=== PATIENT | female | born 1935 | race Caucasian/White ===

== ENCOUNTER 2017-06-23 08:45 | Inpatient (IN) | payer OTHER, MEDICARE ==
[~2017-06-23] VITALS: Ht 160 cm; Wt 76.3 kg
--- NOTE | 2017-06-23 09:45 | RADIOLOGY REPORT ---
EXAMINATION: XR CHEST CLINICAL INFORMATION: Chest pain. COMPARISON: 05/07/2017 TECHNIQUE: 2 views of the chest were obtained. FINDINGS: The lungs are well expanded. Mild elevation of the right hemidiaphragm. No consolidation, edema, or effusion. No pneumothorax. The cardiomediastinal silhouette is within normal limits. No acute osseous abnormality. Radiopaque anchor in the right humeral head. IMPRESSION: No acute pulmonary findings.
[2017-06-23 12:19] LABS: ABSOLUTE BASOPHIL COUNT 0 /CUMM (0.0-0.2); ABSOLUTE EOSINOPHIL COUNT 0 /CUMM (0.0-0.7); ABSOLUTE GRANULOCYTE CT 7.5 /CUMM (1.4-6.5); ABSOLUTE LYMPH COUNT 1.8 /CUMM (1.2-3.4); ABSOLUTE MONOCYTE COUNT 0.8 /CUMM (0.10-0.60); BASOPHIL % 0.4 % (0.0-2.0); EOSINOPHIL % 0.2 % (0-5); GRANULOCYTE % 74.2 % (42.2-75.2); HEMATOCRIT 39.9 % (37-47); MEAN CORPUSCULAR HGB 32.3 PG (27.0-31.0); MEAN CORPUSCULAR HGB CONC 33.9 G/DL (33.0-37.0); MEAN CORPUSCULAR VOLUME 95.4 FL (81.0-99.0); MEAN PLATELET VOLUME 7.4 FL (7.4-10.4); PLATELET COUNT 359 /CUMM (130-400); RBC DISTRIBUTION WIDTH 13.1 % (11.5-14.5); RED BLOOD CELL CT 4.18 /CUMM (4.20-5.40); WHITE BLOOD CELL COUNT 10.1 /CUMM (4.8-10.8)
--- NOTE | 2017-06-23 12:30 | ED CARDIAC/CP/PALPITATIONS ---
History of Present Illness General Chief Complaint: Chest Pain Stated Complaint: SOB/CP Source: patient Exam Limitations: no limitations Vital Signs & Intake/Output Vital Signs & Intake/Output Vital Signs Date Time Temp Pulse Resp B/P B/P Pulse O2 O2 Flow FiO2 Mean Ox Delivery Rate 06/23 1649 97.0 84 20 118/70 95 06/23 1550 99.4 88 16 122/58 98 Room Air 06/23 1439 100.0 96 20 141/63 96 06/23 1216 Room Air 06/23 0855 98.1 87 18 134/80 96 Room Air Allergies Coded Allergies: meperidine (From DEMEROL) (LIGHTHEADED 06/23/17) Triage Note: PT STATES THAT SHE HAS GRADUALLY BEEN GETTING EXERTIONAL SOB OVER THE PAST MONTH, HAD OUT PT PULMONARY TEST HERE, LAST PM SHE WAS WOKEN OUT OF SLEEP WITH L SIDE SHARP CHEST PAIN NON RADIATING AND DIFFICULTY CATCHING HER BREATH. O2 SAT 96 % ON RA. NSR ON EKG, PT NOTED TO BE VERY ANXIOUS. PAIN NOTED TO INCREASE WHEN PT WAS TRYING TO SIT UP FROM LYING POSITION AFTER EKG Triage Nurses Notes Reviewed? yes Onset: Abrupt Duration: day(s): (2), intermittent Timing: recent history Quality/Severity: moderate, severe Location: central Radiation: no radiation Activities at Onset: none HPI: 81-year-old female comes into the emergency room with complaints of chest pain has been going on for the past 2 days. Pain is sharp. Intermittent. Left side. Comes and goes every 15 minutes or so. Some associated shortness of breath. Denies any fever chills vomiting diaphoresis. History of hypertension and hyperlipidemia. She saw her primary care doctor last month and was diagnosed with pneumonia and prescribed antibiotics. She has not felt better since then and pain became more increased over the last couple days. (Lauri Pritchett) Past History Travel History Traveled to [place] past 21 day No Medical History Any Pertinent Medical History? see below for history Neurological: NONE EENT: NONE Cardiovascular: hypertension, hyperlipidemia Respiratory: pneumonia Gastrointestinal: GERD Hepatic: NONE Renal: NONE Musculoskeletal: NONE Psychiatric: NONE Endocrine: NONE Blood Disorders: NONE Cancer(s): NONE Surgical History Surgical History: appendectomy, hip replacement, ROTATOR CUFF Psychosocial History What is your primary language British Tobacco Use: Never used ETOH Use: denies use Illicit Drug Use: denies illicit drug use Family History Hx Contributory? No (Lauri Pritchett) Review of Systems Review of Systems Constitutional: Reports: no symptoms. EENTM: Reports: no symptoms. Respiratory: Reports: see HPI. Cardiovascular: Reports: see HPI. GI: Reports: no symptoms. Genitourinary: Reports: no symptoms. Musculoskeletal: Reports: no symptoms. Skin: Reports: no symptoms. Neurological/Psychological: Reports: no symptoms. Hematologic/Endocrine: Reports: no symptoms. Immunologic/Allergic: Reports: no symptoms. All Other Systems: Reviewed and Negative (Lauri Pritchett) Physical Exam Physical Exam General Appearance: well developed/nourished, alert, awake Head: atraumatic, normal appearance Eyes: Bilateral: normal appearance, EOMI. Ears, Nose, Throat: normal ENT inspection, hearing grossly normal Neck: normal inspection Respiratory: normal breath sounds, no respiratory distress Cardiovascular: regular rate/rhythm Gastrointestinal: soft Back: normal inspection Extremities: normal inspection Neurologic/Psych: awake, alert, oriented x 3, normal gait Skin: intact, normal color Core Measures ACS in differential dx? No CVA/TIA Diagnosis No Sepsis Present: No Sepsis Focused Exam Completed? No (Lauri Pritchett) Progress Differential Diagnosis: AMI, aortic dissection, cholecystitis, musculoskeletal pain, myocarditis, pancreatitis, pericarditis, pneumonia, pneumothorax, pulmonary embolism, respiratory failure, sepsis, unstable angina, V-fib/V-Tach, WPW syndrome Plan of Care: Orders Procedure Date/time Status Heart Healthy Diet 06/23 D Active BLOOD CULTURE 06/23 1617 Active TROPONIN LEVEL 06/23 1515 Complete EKG 06/23 1515 Active Patient Data 06/23 1457 Active RAPID VIRAL INFLUENZA A 06/23 1448 Complete ED Holding Orders 06/23 1442 Active Admit to inpatient 06/23 1442 Active Vital Signs 06/23 1442 Active Code Status 06/23 1442 Active Telemetry/Manager Qa 06/23 1216 Active Add-on Test (ER Only) 06/23 1215 Active D-DIMER 06/23 1215 Complete TROPONIN LEVEL 06/23 0911 Complete COMPREHENSIVE METABOLIC PANEL 06/23 0911 Complete CBC WITHOUT DIFFERENTIAL 06/23 0911 Complete EKG 06/23 0846 Active Telemetry/Manager Qa 06/23 UNK Active Laboratory Tests 06/23/17 1515: Troponin I < 0.01 06/23/17 1215: D-Dimer High Sensitivty 359 H 06/23/17 1213: Anion Gap 13, Estimated GFR > 60, BUN/Creatinine Ratio 20.0, Glucose 122 H, Calcium 9.8, Total Bilirubin 1.2, AST 20, ALT 22, Alkaline Phosphatase 87, Troponin I < 0.01, Total Protein 7.1, Albumin 4.2, Globulin 2.9, Albumin/ Globulin Ratio 1.4, CBC w Diff NO MAN DIFF REQ, RBC 4.18 L, MCV 95.4, MCH 32.3 H, MCHC 33.9, RDW 13.1, MPV 7.4, Gran % 74.2, Lymphocytes % 17.3 L, Monocytes % 7.9, Eosinophils % 0.2, Basophils % 0.4, Absolute Granulocytes 7.5 H, Absolute Lymphocytes 1.8, Absolute Monocytes 0.8 H, Absolute Eosinophils 0, Absolute Basophils 0 Microbiology 06/23 1617 BLOOD: Blood Culture - ORD 06/23 1500 NASOPHARYN: Influenza Virus A & B Rapid Smear - COMP Diagnostic Imaging: Viewed by Me: Radiology Read. Discussed w/RAD: Radiology Read. Radiology Impression: PATIENT: ESTEFANÍA WILLINGHAM PRESENT AGE: 81 PATIENT ACCOUNT NO: [id number] : 35 LOCATION: [facility] ORDERING PHYSICIAN: Marcy CARMONA SERVICE DATE: 06/23/17 EXAM TYPE: RAD - XRY-CHEST XRAY, TWO VIEWS EXAMINATION: XR CHEST CLINICAL INFORMATION : Chest pain. COMPARISON: 05/07/2017 TECHNIQUE: 2 views of the chest were obtained. FINDINGS: The lungs are well expanded. Mild elevation of the right hemidiaphragm. No consolidation, edema, or effusion. No pneumothorax. The cardiomediastinal silhouette is within normal limits. No acute osseous abnormality. Radiopaque anchor in the right humeral head. IMPRESSION: No acute pulmonary findings. DICTATED BY: Jimmy Horton MD DATE/TIME DICTATED:940 APPLICATION INTEGRATOR:POOL DATE/TIME TRANSCRIBED:06/23/17940 CONFIDENTIAL, DO NOT COPY WITHOUT APPROPRIATE AUTHORIZATION. <Electronically signed in Other Vendor System> SIGNED BY: Jimmy Horton MD 06/23/1745 Initial ED EKG: normal sinus rhythm, rate (85), BORDERLINE T WAVE ABNORMALITIES Comments: 06/23/2017 3:30:[address] Fitzpatrick was consult. He will see the patient upstairs. She apparently has been in and out of A. fib on the Holter monitor that was performed. At this time we will hold on anticoagulation because she is in sinus rhythm. (Lauri Pritchett) Departure Departure Disposition: STILL A PATIENT Condition: Stable Clinical Impression Primary Impression: Unstable angina Secondary Impressions: Paroxysmal A-fib Referrals: Susi Saravia MD (PCP/Family) Departure Forms: Customer Survey General Discharge Information Admission Note Documentation of Exam: Documentation of any treatments & extenuating circumstances including Concerns Regarding Discharge (functional status, medication knowledge or non-compliance, living conditions, etc.) that warrant an admission rather than observation: Patient will require cardiac consultation. Serial troponins. Serial EKGs. Echocardiogram. High risk. Patient is in and out of A. fib. Patient may require IV heparin and anticoagulation. Medically not safe for discharge. Consider stress test due to the intermittent chest pain she is having which is concerning for unstable angina pain. (Lauri Pritchett) Admission Note Spoke With: Fabián MORAN,Mayela Beatty PA/LEARNING AND DEVELOPMENT ASSOCIATE Co-Sign Statement Statement: ED Attending supervision documentation- [X] I saw and evaluated the patient. I have also reviewed all the pertinent lab results and diagnostic results. I agree with the findings and the plan of care as documented in the PA's/LEARNING AND DEVELOPMENT ASSOCIATE's documentation. [X] I have reviewed the ED Record and agree with the PA's/LEARNING AND DEVELOPMENT ASSOCIATE's documentation. [] Additions or exceptions (if any) to the PAs/LEARNING AND DEVELOPMENT ASSOCIATE's note and plan are summarized below: [PT TO BE ADMITED FOR ACS, CP AND SOB, CARDIOLOGY CONSULTATION, SERIAL ENZYMES] (Elvis MORAN,Neftaly William) Critical Care Note Critical Care Note Critical Care Time: non-applicable (Lauri Pritchett)
--- NOTE | 2017-06-23 13:58 | CT SCAN REPORT ---
EXAMINATION: CT ANGIOGRAM OF THE CHEST WITH AND WITHOUT CONTRAST (CT PULMONARY ANGIOGRAM FOR PE) CLINICAL INFORMATION: Chest pain. COMPARISON: Radiograph from today. TECHNIQUE: Prior to contrast administration, noncontrast localization images were obtained. Subsequently, multidetector volumetric imaging was performed from the thoracic inlet to below the diaphragms following the administration of 65 mL Optiray 320 intravenous contrast. No contrast reaction reported. Sagittal, coronal, and MIP oblique sagittal reformatted images were obtained on the CT workstation, uploaded to PACS, and reviewed. Total exam dose-length product 409 mGy-cm. FINDINGS: QUALITY OF STUDY/CONTRAST BOLUS: Satisfactory PULMONARY ARTERIES: No central or segmental pulmonary emboli. THORACIC AORTA: No aneurysm or dissection. LUNG: The central airways are patent. Minimal dependent atelectasis bilaterally. No dense consolidation. No suspicious pulmonary nodules. PLEURA: No pleural effusion or pneumothorax. MEDIASTINUM: Normal heart size. There is a trace pericardial effusion. No mediastinal lymphadenopathy. The thyroid gland is unremarkable. No evidence of septal bowing or right heart strain. CHEST WALL/AXILLA: No axillary or internal mammary lymphadenopathy. There is a soft tissue nodule in the upper inner quadrant of the right breast which measures 1.2 x 0.9 cm. OSSEOUS STRUCTURES: No acute or suspicious osseous abnormality. Mild degenerative changes of the spine. UPPER ABDOMEN: Small hiatal hernia noted. No reflux of contrast into the hepatic veins to suggest elevated right heart pressures. IMPRESSION: 1. No pulmonary embolism. 2. Trace pericardial effusion. 3. No acute pulmonary findings. 4. Soft tissue nodule in the upper quadrant of the right breast. This should be correlated with mammography. VTE: negative
--- NOTE | 2017-06-23 14:57 | History & Physical ---
Rubia Barajas 06/23/17 1457: General Information and HPI MD Statement: I have seen and personally examined ESTEFANÍA WILLINGHAM and documented this H& P. The patient is a 81 year old F who presented with a patient stated chief complaint of []. Source of Information: patient Exam Limitations: no limitations History of Present Illness: Ms. Willingham is a 81yo F w/ PMH of HTN, HLD, GERD, appedectomy, Hip replacement in 2013, and recently outpatient treated pneumonia w/ doxycycline in 04/2017, presented to ER with exertional SOB for a month and sudden onset of left sided non-radiating, sharp, and intermittent chest pain starting last night. Patient was brought to ER by her daughter. Patient stated that she did not feel much improved on breathing after the outpatient treatment of her pneumonia, and still felt SOB on exertions of any kind around house. Patient endorsed remote episode of chest pain 2-3 yrs ago, however no abnormality was found from cardiac workup including echocardiogram. Patient can ambulate independently at home with all ADLs and IADLs. Of note, patient was recently sent for holter monitoring by her PCP Dr. Saravia and was found to have paroxysmal A-fib after Dr. Fitzpatrick's readings. Patient denied fever/night sweat/weight change/mood change/insomnia, dietary/ appetite change. Patient denied cough/Abdominal pain, bowel movement/urinary abnormality, or other skin/musculoskeletal/neurological disorders. Allergies/Medications Allergies: Coded Allergies: meperidine (From DEMEROL) (LIGHTHEADED 06/23/17) Past History Travel History Traveled to [place] past 21 day No Medical History Neurological: NONE EENT: NONE Cardiovascular: hypertension, hyperlipidemia Respiratory: pneumonia Gastrointestinal: GERD Hepatic: NONE Renal: NONE Musculoskeletal: NONE Psychiatric: NONE Endocrine: NONE Blood Disorders: NONE Cancer(s): NONE Surgical History Surgical History: appendectomy, hip replacement, ROTATOR CUFF Past Family/Social History Psychosocial History Smoking Status: Former Smoker (Quitted 1988) ETOH Use: denies use Illicit Drug Use: denies illicit drug use Functional Ability ADLs Independent: dressing, eating, toileting, bathing. Ambulation: independent IADLs Independent: shopping, housework, finances, food prep, telephone, transportation , medication admin. Review of Systems Review of Systems Constitutional: Reports: see HPI. Exam & Diagnostic Data Last 24 Hrs of Vital Signs/I&O Vital Signs Date Time Temp Pulse Resp B/P B/P Pulse O2 O2 Flow FiO2 Mean Ox Delivery Rate 06/23 1649 97.0 84 20 118/70 95 06/23 1550 99.4 88 16 122/58 98 Room Air 06/23 1439 100.0 96 20 141/63 96 06/23 1216 Room Air 06/23 0855 98.1 87 18 134/80 96 Room Air Intake & Output 06/23 1600 06/23 0800 06/23 0000 Intake Total Output Total Balance Patient 77.111 kg Weight Physical Exam General Appearance Alert, Oriented X3, Cooperative, No Acute Distress Skin No Rashes, No Breakdown, No Significant Lesion Skin Temp/Moisture Exam: Warm/Dry HEENT Atraumatic, PERRLA Neck Supple, No JVD Cardiovascular Regular Rate, Normal S1, Normal S2 Lungs Clear to Auscultation, Normal Air Movement Abdomen Normal Bowel Sounds, Soft, No Tenderness Neurological Normal Speech, Strength at 5/5 X4 Ext Extremities No Edema, Normal Pulses, No Tenderness/Swelling Last 24 Hrs of Labs/Zeus: Laboratory Tests 06/23/17 1515: Troponin I < 0.01 06/23/17 1215: D-Dimer High Sensitivty 359 H 06/23/17 1213: Anion Gap 13, Estimated GFR > 60, BUN/Creatinine Ratio 20.0, Glucose 122 H, Hemoglobin A1c Pending, Calcium 9.8, Magnesium 1.9, Total Bilirubin 1.2, AST 20, ALT 22, Alkaline Phosphatase 87, Troponin I < 0.01, Total Protein 7.1, Albumin 4.2, Globulin 2.9, Albumin/Globulin Ratio 1.4, TSH 2.480, Free T4 1.55, Free T3 3.6, CBC w Diff NO MAN DIFF REQ, RBC 4.18 L, MCV 95.4, MCH 32.3 H, MCHC 33.9, RDW 13.1, MPV 7.4, Gran % 74.2, Lymphocytes % 17.3 L, Monocytes % 7.9, Eosinophils % 0.2, Basophils % 0.4, Absolute Granulocytes 7.5 H, Absolute Lymphocytes 1.8, Absolute Monocytes 0.8 H, Absolute Eosinophils 0, Absolute Basophils 0 Microbiology 06/23 1720 BLOOD: Blood Culture - RECD 06/23 1500 NASOPHARYN: Influenza Virus A & B Rapid Smear - COMP Assessment/Plan Assessment: Ms. 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 Patient endorsed remote episode of chest pain 2-3 yrs ago, however no abnormality was found from cardiac workup including echocardiogram. Of note,patient was recently sent for holter monitoring by her PCP Dr. Saravia and was found to have paroxysmal A-fib after Dr. Fitzpatrick's readings. Patient denied fever/night sweat/weight change/mood change/insomnia, dietary/ appetite change. Patient denied cough/Abdominal pain, bowel movement/urinary abnormality, or other skin/musculoskeletal/neurological disorders. On admission, Vitals: Tmax 100.0, Otherwise stable under room air, BP 141/63 -CBC: Unremarkable -BMP: Unremarkable -Misc: DDimer 359, Trop -ve x 1 -CXR: no acute process -CTA: negative for PE -EKG: Normal sinus rhythm with nonspecific ST-T abnormalities. -Interventions in ER: Tylenol, ASA 325mg Assessment: Ms. 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 Without significant lab/EKG/imaging abnormality to suggest any active cardiac or pulmonary event contributing to patient's SOB and sudden onset chest pain, it is likely that patient was suffering from unstable Angina pending rule out, and less likely, due to paroxysmal a-fib from recent findings. Problem list #Unstable Angina #Paroxysmal A-fib #PMH of HTN, HLD Plan - Admit to Telemetry - Serial troponin & EKG - Will start ASA 325mg daily - Pending cardiology consult - Blood culture sent for Tmax 100.0, despite patient's temp self resolved without signs of infection. DVT prophylaxis Heparin + ALPS Heart Healthy Diet DNR/DNI As Ranked By This Provider Problem List: 1. Unstable angina 2. Paroxysmal A-fib Core Measures/Misc (12/27) Acute Coronary Syndrome ACS Diagnosis: No Congestive Heart Failure Congestive Heart Failure Diagnosis No Cerebrovascular Accident CVA/TIA Diagnosis: No VTE (View Protocol) VTE Risk Factors Age>40 No Mechanical VTE Prophylaxis d/t N/A MechProphylax Ordered No VTE Pharm Prophylaxis d/t NA PharmProphylax ordered Sepsis (View protocol) Sepsis Present: No Yang Trevizo MD 06/23/171916: General Information and HPI Allergies/Medications Home Med list Metoprolol Succ XL (Toprol XL) 25 MG TAB 1 TAB PO DAILY ARRYTHMIA (Reported) Omeprazole 20 MG TABLET.DR 1 TAB PO DAILY aCIDITY (Reported) Pravastatin Sodium 40 MG TABLET 1 TAB PO DAILY HYPERLIPIDEMIA (Reported) Resident Review Statement Resident Statement: examined this patient, discussed with help desk internship, agreed with help desk internship Other Findings: Patient is an 81-year-old female the past medical history of hypertension, hyperlipidemia, osteoarthritis, hiatal hernia, GERD, history of colonic polyps status post polyp removal, diverticular disease, internal and external hemorrhoids, recently treated for pneumonia by doxycycline presented with chief complaints of gradually progressive onset of chest pain which got worse last night. According to the patient, she was recently treated for pneumonia in April with doxycycline. After which she started having shortness of breath especially on exertion. She thinks that she was having associated chest pain with breathing.Yesterday night, after she had dinner and going to bad for sleep she started having chest pain.It was located in the center of the chest and was increased by taking deep breathing and moving in the bed. She tries 2 tb of Tylenol without any benefit.In the morning her daughter convinced her to come to the hospital that is why she is here. She denies for any palpitation, fever, chills, nausea, vomiting, dizziness, blurry of vision,.At her baseline she lives with the family with the and does all his activities without any problem. Of note -she was recently evaluated for arrhythmia by her primary care physician Dr. Saravia, by 24 hour Holter monitoring which showed evidence of paroxysmal atrial fibrillation(according to Dr. Fitzpatrick's note). ED course -vital signs temperature 98.1, pulse 87, respiratory rate 18, blood pressure 140/80, SPO2 96% on room air. Blood workup showed RBC 4.18, hemoglobin 13.5, hematocrit 39.9, platelet count 359, sodium 138, potassium 4.0, chloride 102, anion gap 13, BUN 16, creatinine 0.8, glucose 122, calcium 9.8, total bilirubin 1.2, AST 20, ALT 22, alkaline phosphatase 87, troponin I less than 0.01, Albumin 4.2, d-dimer -359 Chest x-ray -no acute cardiopulmonary abnormality CTA -no evidence of PE, trace pericardial effusion, soft tissue nodule in right side of the breast. Assessment and plan - Patient is an 81-year-old female with history of multiple coronary artery disease risk factors including hypertension, hyperlipidemia presented with chief complaints of chest pain. Holter monitoring was showing evidence of paroxysmal atrial fibrillation. Her EKG does not show any acute ST-T wave changes, serial troponins twice were negative. It seems that he she has unstable angina or it was due to paroxysmal atrial fibrillation that she was getting chest pain.We will observe the patient to telemetry floor and do serial troponins and EKG.We will obtain cardiology consult and if needed echocardiogram tomorrow. Chest pain -possible unstable angina/ PAF - ([id number] Score -4, for Atrial Fibrillation Stroke Risk -4.8% per year) * Admit the patient to telemetry floor * Serial troponins and EKG * Pain medication according to the pain scale * Start patient on tablet aspirin 325 mg once a day * We will follow cardiology recommendation * We will consider Anticoagulation after discussing with cardio * We will consider Echo for Pericardial effusion - ? Physilogical or post Viral/ bacterial. Chronic medical conditions -hypertension, hyperlipidemia * We will continue on her metoprolol, pravastatin as before. NoCODE STATUS -DNR/DNI Diet -heart healthy diet DVT prophylaxis -SANGEETHA/heparin Imtiaz Klein MD 06/23/17 2228: Attending MD Review Statement Attending Statement Attending MD Statement: examined this patient, discuss w/resident/PA/PACKAGING MACHINE SUPPLIES DISTRIBUTOR, agreed w/resident/PA/PACKAGING MACHINE SUPPLIES DISTRIBUTOR, reviewed EMR data (avail), discussed with nursing, discussed with case mgmt, amended to note Attending Assessment/Plan: Patient seen and examined. 81-year-old female who presents to the emergency room with complaints of chest pain. Patient reports symptoms associated palpitations and occasional symptoms of breath. She was treated for pneumonia in April by her primary care provider in the outpatient setting. She recently had Holter monitor placed by her primary care provider due to the same complaints. According to her re etcher MONITOR REVEALED EPISODES OF PAROXYSMAL ATRIAL FIBRILLATION. ON ARRIVAL IN THE EMERGENCY ROOM TODAY PATIENT IS HEMODYNAMICALLY STABLE. SHE IS FOUND TO BE IN NORMAL SINUS RHYTHM. SHE DID HAVE AN ABNORMAL EKG ON PRESENTATION HOWEVER HER FIRST TROPONIN IS NEGATIVE. ON EXAMINATION SHE IS RESTING COMFORTABLY AND NOT IN ANY RESPIRATORY DISTRESS. HEART SOUNDS ARE REGULAR. LUNGS ARE CLEAR TO AUSCULTATION BILATERALLY. SHE HAS NO EVIDENCE OF VOLUME OVERLOAD. CT ANGIOGRAM DONE IN THE EMERGENCY ROOM SHOWED NO EVIDENCE OF PULMONARY EMBOLISM. HE DID HOWEVER SHOW NODULE WITHIN HER BREAST AND WAS SUGGESTIVE OF SMALL PERICARDIAL EFFUSION. Recommendations: -Admit to the inpatient medical service. Monitor patient on the telemetry unit. -Trend cardiac enzymes. Obtain echocardiogram. Repeat EKG in a.m. -Follow the cardiology service regarding need for further ischemic workup with a stress test given her abnormal EKG and complaints of chest pain. -Continue beta armin therapy for her blood pressure control and also paroxysmal atrial fibrillation. She does have an elevated transvascular score with increased recent stroke. We'll follow the cardiology service regarding recommendations for anticoagulant therapy. -Follow-up echocardiogram to determine degree of her pericardial effusion. -She'll need to follow-up with her primary care provider for a mammogram as an outpatient.
[2017-06-23 16:49] VITALS: BP 118/70
[2017-06-23] MEDS ORDERED: TOPROL XL25 M1 PO (17:05)
[2017-06-23] MEDS ORDERED: OMEPRAZOLE20 M3 PO (17:06)
[2017-06-23] MEDS ORDERED: PRAVASTATIN SOD40 M2 PO (17:06)
--- NOTE | 2017-06-23 19:02 | Cons- Cardiology ---
General Information and HPI Consulting Request Date of Consult: 06/23/17 Requested By: Imtiaz Klein MD Reason for Consult: Chest pain and shortness of breath. Source of Information: patient, old records Exam Limitations: no limitations History of Present Illness: Mrs. Laurita Preciado is an 81-year-old female with a history of osteoarthritis, hiatal hernia, gastroesophageal reflux disease, colonic polyps s /p polypectomy, diverticular disease, internal/external hemorrhoids, hypertension, dyslipidemia, pneumonia in April 2017 and a recent evaluation by her primary care physician (Los Saravia M.D.) and placement of a 24-hour Holter monitor that revealed sinus rhythm and atrial fibrillation with rapid ventricular response rates who presented from home with complaints of progressive shortness of breath on exertion over the past few months following the bout of pneumonia and an episode of severe ("10/10"), "sharp", chest discomfort that awakened her from sleep at ~4:00 a.m. today was worse with deep inspiration, but unchanged whether she was lying flat or seated. She denies any known history of coronary, valvular, dysrhythmic/conduction disease, or cardiomyopathy. Allergies/Medications Allergies: Coded Allergies: meperidine (From DEMEROL) (LIGHTHEADED 06/23/17) Home Med List: Metoprolol Succ XL (Toprol XL) 25 MG TAB 1 TAB PO DAILY ARRYTHMIA (Reported) Omeprazole 20 MG TABLET.DR 1 TAB PO DAILY aCIDITY (Reported) Pravastatin Sodium 40 MG TABLET 1 TAB PO DAILY HYPERLIPIDEMIA (Reported) Review of Systems Review of Systems: A 14 point system review was obtained was noncontributory, other than as above. Past History Travel History Traveled to [place] past 21 day No Medical History Blood Transfusion Hx: No Neurological: NONE EENT: NONE Cardiovascular: hypertension, hyperlipidemia Respiratory: pneumonia Gastrointestinal: GERD, hiatal hernia, diverticular disease, colonic polyps s/p polypectomy, internal/external hemorrhoids Hepatic: NONE Renal: NONE Musculoskeletal: osteoarthritis Psychiatric: NONE Endocrine: NONE Blood Disorders: NONE Cancer(s): NONE Surgical History Surgical History: appendectomy, hip replacement, ROTATOR CUFF Psychosocial History Where Do You Live? Home Services at Home: None Smoking Status: Never Smoked ETOH Use: denies use Illicit Drug Use: denies illicit drug use Exam & Diagnostic Data Vital Signs and I&O Vital Signs Date Time Temp Pulse Resp B/P B/P Pulse O2 O2 Flow FiO2 Mean Ox Delivery Rate 06/23 1649 97.0 84 20 118/70 95 06/23 1550 99.4 88 16 122/58 98 Room Air 06/23 1439 100.0 96 20 141/63 96 06/23 1216 Room Air 06/23 0855 98.1 87 18 134/80 96 Room Air Intake & Output 06/23 1600 06/23 0800 06/23 0000 06/22 1600 06/22 0800 06/22 0000 Intake Total Output Total Balance Patient 170 lb Weight Physical Exam: Well-developed, well-nourished elderly female in no acute distress with nasal oxygen in place. Vital signs: See above. HEENT: Normocephalic, atraumatic, EOMI, moist mucous membranes. Neck: No JVD, no bruits. Lungs: Few bibasilar crackles. Heart: S1, S2 with no murmur, gallop, or rub. PMI fifth ICS at MCL. Abdomen: Soft, nontender, positive bowel sounds. Extremities: No edema. Labs/Zeus Results: Laboratory Tests 06/23 06/23 06/23 1515 1215 1213 Chemistry Sodium (137 - 145 mmol/L) 138 Potassium (3.5 - 5.1 mmol/L) 4.0 Chloride (98 - 107 mmol/L) 102 Carbon Dioxide (22 - 30 mmol/L) 23 Anion Gap (5 - 16) 13 BUN (7 - 17 mg/dL) 16 Creatinine (0.5 - 1.0 mg/dL) 0.8 Estimated GFR (>60 ml/min) > 60 BUN/Creatinine Ratio (7 - 25 %) 20.0 Glucose (65 - 99 mg/dL) 122 H Calcium (8.4 - 10.2 mg/dL) 9.8 Total Bilirubin (0.2 - 1.3 mg/dL) 1.2 AST (14 - 36 U/L) 20 ALT (9 - 52 U/L) 22 Alkaline Phosphatase (<127 U/L) 87 Troponin I (< 0.11 ng/ml) < 0.01 < 0.01 Total Protein (6.3 - 8.2 g/dL) 7.1 Albumin (3.5 - 5.0 g/dL) 4.2 Globulin (1.9 - 4.2 gm/dL) 2.9 Albumin/Globulin Ratio (1.1 - 2.2 %) 1.4 TSH (0.270 - 4.200 uIU/mL) Pending Free T4 (0.85 - 1.93 ng/dL) Pending Free T3 (2.34 - 5.61 pg/mL) Pending Coagulation D-Dimer High Sensitivty (0 - 243 ng/ml) 359 H Hematology CBC w Diff NO MAN DIFF REQ WBC (4.8 - 10.8 /CUMM) 10.1 RBC (4.20 - 5.40 /CUMM) 4.18 L Hgb (12.0 - 16.0 G/DL) 13.5 Hct (37 - 47 %) 39.9 MCV (81.0 - 99.0 FL) 95.4 MCH (27.0 - 31.0 PG) 32.3 H MCHC (33.0 - 37.0 G/DL) 33.9 RDW (11.5 - 14.5 %) 13.1 Plt Count (130 - 400 /CUMM) 359 MPV (7.4 - 10.4 FL) 7.4 Gran % (42.2 - 75.2 %) 74.2 Lymphocytes % (20.5 - 51.1 %) 17.3 L Monocytes % (1.7 - 9.3 %) 7.9 Eosinophils % (0 - 5 %) 0.2 Basophils % (0.0 - 2.0 %) 0.4 Absolute Granulocytes (1.4 - 6.5 /CUMM) 7.5 H Absolute Lymphocytes (1.2 - 3.4 /CUMM) 1.8 Absolute Monocytes (0.10 - 0.60 /CUMM) 0.8 H Absolute Eosinophils (0.0 - 0.7 /CUMM) 0 Absolute Basophils (0.0 - 0.2 /CUMM) 0 Diagnostic Data EKG Results 06/23/2017: Sinus rhythm with an atrial premature contraction and first-degree AV block. No significant change when compared to earlier tracing today. CXR Results No acute cardiopulmonary findings. Other Results Chest CTA 06/23/2017: 1. No pulmonary embolism. 2. Trace pericardial effusion. 3. No acute pulmonary findings. 4. Soft tissue nodule in the upper quadrant of the right breast. This should be correlated with mammography. Assessment/Plan Assessment/Plan [id number] w/ hx HTN, HLD, recently discovered AF on 24-hour Holter monitoring who presents with complaints of severe chest pain that is worse with movement and progressive shortness of breath over the past month with a low-grade temperature, minor concave upward ST segment elevation, minor MA depression in some leads, and MA elevation in the reciprocal lead aVR on her 12-lead ECG, and a trace pericardial effusion on her chest CTA which could suggest pericardial inflammation, but who also now has the new issue of atrial fibrillation. Fortunately, she is in sinus rhythm now, but we have no way of knowing how long she was in the atrial fibrillation and need to consider anticoagulation given her elevated [id number] score of at least 4 (female=1 pt, HTN=1 pt, age >75=2 pts). This would give her a yearly unadjusted stroke rate of 4.8% without anticoagulation. Recommendations: * Admit to telemetry, serial troponins, follow-up ECG. * Echocardiogram to assess left ventricular systolic/diastolic function, degree of LVH given history of HTN, assess pericardial effusion, RV function, etc. * Check C-reactive protein and erythrocyte sedimentation rate. If no evidence of inflammation will proceed with anticoagulation. * Check magnesium, free T4, TSH, glycosylated hemoglobin A1c, etc. * Mammography to follow-up on breast nodule noted on chest CTA. * DVT prophylaxis. Further recommendations will follow, Thank you. Consult Acknowledgment - Thank you for your consult request.
[2017-06-23 22:59] VITALS: BP 126/74
[2017-06-24 06:51] VITALS: BP 120/80
--- NOTE | 2017-06-24 07:19 | PN- Housestaff ---
Rubia Barajas 06/24/17 0719: Subjective Follow-up For: #Chest pain likely 2/2 Pericarditis #Paroxysmal A-fib #PMH of HTN, HLD Tele-Events Since Last Visit: NSR 90s, no A-fib found Subjective: No overnight event. Patient complained of overnight chest pain similar to before admission, however resolved in the morning. Awared of CTA results of fluid within pericardium, and Echo today. Acknowledged of fever at Tmax 101 however not feeling chills/headache. No other specific complaint. Denied bowel/urinary abnormalities. Review of Systems Constitutional: Reports: see HPI. Objective Last 24 Hrs of Vital Signs/I&O Vital Signs Date Time Temp Pulse Resp B/P B/P Pulse O2 O2 Flow FiO2 Mean Ox Delivery Rate 06/24 0900 98.3 06/24 0900 98.3 92 24 138/70 95 Room Air 06/24 0800 Room Air 06/24 0706 101.0 06/24 0651 101.0 99 20 120/80 94 Room Air 06/23 2259 98.4 94 21 126/74 95 06/23 2110 93 06/23 1649 97.0 84 20 118/70 95 06/23 1550 99.4 88 16 122/58 98 Room Air 06/23 1439 100.0 96 20 141/63 96 06/23 1216 Room Air Intake & Output 06/24 1600 06/24 0800 06/24 0000 Intake Total 110 250 Output Total Balance 110 250 Intake, IV 10 Intake, Oral 100 250 Patient 78.471 kg 77.593 kg Weight Weight Bed scale Measurement Method Physical Exam General Appearance: Alert, Oriented X3, Cooperative, No Acute Distress Cardiovascular: Regular Rate Lungs: Clear to Auscultation, Normal Air Movement Abdomen: Soft, No Tenderness Neurological: Normal Speech Extremities: No Edema, Normal Pulses Current Medications: Current Medications Sig/Ramsey Start time Last Medication Dose Route Stop Time Status Admin Acetaminophen 650 MG Q6PRN PRN 06/24 0530 AC 06/24 PO 0706 Acetaminophen 0 .STK-MED ONE 06/23 1501 DC PO Acetaminophen 975 MG ONCE ONE 06/23 1500 DC 06/23 PO 06/23 1501 1459 Aspirin 325 MG DAILY 06/24 1000 AC 06/24 PO 0907 Aspirin 0 .STK-MED ONE 06/23 1256 DC PO Aspirin 325 MG ONCE ONE 06/23 1230 DC 06/23 PO 06/23 1231 1251 Atorvastatin Calcium 40 MG 1700 06/24 1700 AC PO Enoxaparin Sodium 40 MG DAILY 06/24 1000 AC 06/24 SC 0911 Enoxaparin Sodium 40 MG DAILY 06/24 0600 DC SC Heparin Sodium 5,000 UNIT Q8 06/23 2200 DC 06/23 (Porcine) SC 2111 Metoprolol Succinate 25 MG 2100 06/24 2100 AC PO Metoprolol Succinate 25 MG DAILY 06/23 1706 DC 06/23 PO 2110 Omeprazole 20 MG DAILY AC 06/24 0700 AC 06/24 PO 0517 Last 24 Hrs of Lab/[facility] Results Last 24 Hrs of Labs/Mics: Laboratory Tests 06/24/17 0610: Anion Gap 11, Estimated GFR > 60, BUN/Creatinine Ratio 22.9, C-Reactive Prot, Quant > 9.0 H, C-React Prot High Sens > 15.0 H, CBC w Diff NO MAN DIFF REQ, RBC 3.74 L, MCV 96.0, MCH 32.3 H, MCHC 33.6, RDW 13.4, MPV 7.9, Gran % 80.1 H , Lymphocytes % 10.8 L, Monocytes % 8.5, Eosinophils % 0.3, Basophils % 0.3, Absolute Granulocytes 8.0 H, Absolute Lymphocytes 1.1 L, Absolute Monocytes 0.8 H, Absolute Eosinophils 0, Absolute Basophils 0, ESR Westergren 60 H 06/23/17 2100: Troponin I < 0.01 06/23/17 1515: Troponin I < 0.01 06/23/17 1215: D-Dimer High Sensitivty 359 H 06/23/17 1213: Anion Gap 13, Estimated GFR > 60, BUN/Creatinine Ratio 20.0, Glucose 122 H, Hemoglobin A1c 5.7, Calcium 9.8, Magnesium 1.9, Total Bilirubin 1.2, AST 20, ALT 22, Alkaline Phosphatase 87, Troponin I < 0.01, Total Protein 7.1, Albumin 4.2, Globulin 2.9, Albumin/Globulin Ratio 1.4, TSH 2.480, Free T4 1.55, Free T3 3.6, CBC w Diff NO MAN DIFF REQ, RBC 4.18 L, MCV 95.4, MCH 32.3 H, MCHC 33.9, RDW 13.1, MPV 7.4, Gran % 74.2, Lymphocytes % 17.3 L, Monocytes % 7.9, Eosinophils % 0.2, Basophils % 0.4, Absolute Granulocytes 7.5 H, Absolute Lymphocytes 1.8, Absolute Monocytes 0.8 H, Absolute Eosinophils 0, Absolute Basophils 0 Microbiology 06/24 0945 BLOOD: Blood Culture - RECD 06/24 0945 BLOOD: Blood Culture - RECD 06/24 0856 URINE ROUT: Urine Culture - COLB 06/23 1720 BLOOD: Blood Culture - RECD 06/23 1500 NASOPHARYN: Influenza Virus A & B Rapid Smear - COMP Assessment/Plan Assessment: Ms. Preciado is a 81yo F w/ PMH of HTN, HLD, GERD, appedectomy, Hip replacement in 2013, and recently outpatient treated pneumonia w/ doxycycline in 04/2017, presented to ER with exertional SOB for a month and sudden onset of left sided non-radiating, sharp, and intermittent chest pain starting the night DIRECTOR CPG. Without significant lab/EKG/imaging abnormality to suggest any active cardiac or pulmonary event contributing to patient's SOB and sudden onset chest pain, it is likely that patient was suffering from unstable Angina pending rule out, and less likely, due to paroxysmal a-fib from recent findings. Problem list #Pericardial Effusion #L chest pain #Paroxysmal A-fib #PMH of HTN, HLD Plan - Serial troponin & EKG had been negative - Continue ASA 325mg daily - CRP +ve, ESR 60, No white count on lab - Blood culture x 2 sent for Tmax 101.0 overnight, and UA/urine Cx to follow up to rule out other source of infection. However, patient's temp likely related to her pericarditis. - Pending cardio follow up. - Pending Echo DVT prophylaxis Heparin + ALPS Heart Healthy Diet DNR/DNI Problem List: 1. Paroxysmal A-fib 2. Pericardial effusion 3. Chest pain Pain Ratin Pain Location: L Chest pain overnight. Pain Goal: Remain pain free Pain Plan: see AP Tomorrow's Labs & Rationales: RODRIGO Klein MD,Imtiaz 06/24/17 1411: Attending Review Statement Attending Statement Attending MD Statement: examined this patient, discuss w/resident/PA/DAM OPERATOR, agreed w/resident/PA/DAM OPERATOR, reviewed EMR data (avail), discussed with nursing, discussed with case mgmt, amended to note Attending Assessment/Plan: Patient seen and examined. Lying in bed not in any acute distress. No issues overnight. No events on telemetry monitoring. This morning she continues to complain of intermittent chest pain. Denies palpitations. She reports shortness of breath when she gets a chest pain. She reports that her chest pain is aggravated by position changes. She admits to chest pain with deep respiration. This morning she was febrile with a temperature of 101. Denies any cough. Denies any dysuria. Denies any diarrhea. She denies any rashes on the body. She is hemodynamically stable. On examination heart sounds are regular no audible murmur. Lungs are clear to auscultation bilaterally. Abdomen soft and nontender. She has no peripheral edema. She has no leukocytosis on labs. Her ESR is elevated at 60 and her C-reactive protein is very elevated however significant of this is unknown given her current fever. She may have an underlying infectious process going on. Problems: 1. Fever; query etiology. 2. Chest pain. 3. History of paroxysmal atrial fibrillation diagnosed on Holter monitoring. 3. Pericardial effusion. Plan: -Chest pain may be related to pericarditis. This may be viral and causing her fever. -Follow-up echocardiogram to determine the size of a pericardial effusion. -Obtain blood and urine cultures. -Continue metoprolol for rate control. Patient currently remains in sinus rhythm. In view of possibility of pericarditis would recommend holding off anticoagulation therapy for now. Follow-up with the cardiology service. -Mobilize patient as tolerated. -Outpatient mammogram for follow-up of Breast nodule noted on CT scan.
[2017-06-24 08:17] LABS: ABSOLUTE BASOPHIL COUNT 0 /CUMM (0.0-0.2); ABSOLUTE EOSINOPHIL COUNT 0 /CUMM (0.0-0.7); ABSOLUTE LYMPH COUNT 1.1 /CUMM (1.2-3.4); ABSOLUTE MONOCYTE COUNT 0.8 /CUMM (0.10-0.60); BASOPHIL % 0.3 % (0.0-2.0); EOSINOPHIL % 0.3 % (0-5); GRANULOCYTE % 80.1 % (42.2-75.2); HEMATOCRIT 35.9 % (37-47); MEAN CORPUSCULAR HGB 32.3 PG (27.0-31.0); MEAN CORPUSCULAR HGB CONC 33.6 G/DL (33.0-37.0); MEAN PLATELET VOLUME 7.9 FL (7.4-10.4); PLATELET COUNT 323 /CUMM (130-400); RBC DISTRIBUTION WIDTH 13.4 % (11.5-14.5); RED BLOOD CELL CT 3.74 /CUMM (4.20-5.40); WHITE BLOOD CELL COUNT 9.9 /CUMM (4.8-10.8)
[2017-06-24 09:00] VITALS: BP 138/70
--- NOTE | 2017-06-24 13:27 | Patient Discharge Instructions ---
Discharge Instructions General Discharge Information Special Instructions: - Please continue taking Eliquis at prescribed regimen and follow up with your bottling room worker for refill/dose adjustment. Please visit ER for any active bleeding from mouth/nose/rectum, and only stop Eliquis under physician's guidance. - Please follow up with your bottling room worker Dr. Fitzpatrick within 1-2 weeks of discharge. - Please follow up with outpatient mammogram for follow-up of Breast nodule noted on CT scan. - Please follow up with your primary care physician within 1-2 weeks of discharge. Inform your primary care physician of this admission to [facility]. - Continue your current medications per discharge instructions. - Please watch for these problems: Fever, Chills, Nausea, Vomiting, Shortness of Breath, Productive Cough, Chest Pain/Discomfort, Abdominal Pain, Active Bleeding or Bloody urine/stool. Diet Continue normal diet: Yes Recommended Diet: Heart Healthy Activity Full Activity/No Limits: Yes Acute Coronary Syndrome Inclusion Criteria At DC or during hospital stay patient has or had the following: ACS DIAGNOSIS No Discharge Core Measures Meds if any: Prescribed or Continued at Discharge Meds if any: NOT Prescribed or Continued at Discharge Congestive Heart Failure Inclusion Criteria At DC or during hospital stay patient has or had the following: CHF DIAGNOSIS No Discharge Core Measures Meds if any: Prescribed or Continued at Discharge Meds if any: NOT Prescribed or Continued at Discharge Cerebrovascular accident Inclusion Criteria At DC or during hospital stay patient has or had the following: CVA/TIA Diagnosis No Discharge Core Measures Meds if any: Prescribed or Continued at Discharge Meds if any: NOT Prescribed or Continued at Discharge Venous thromboembolism Inclusion Criteria VTE Diagnosis No VTE Type NONE VTE Confirmed by (Test) NONE Discharge Core Measures - Per Current guidelines, there needs to be overlap - treatment for the first 5 days of Warfarin therapy. - If discharged on Warfarin prior to 5 days of - overlap therapy, the patient will need to be - assessed for post discharge needs including - *Post discharge parental anticoagulation - *Warfarin and/or parental anticoagulation education - *Follow up date to check INR post discharge At least 5 days overlap therapy as Inpatient No Meds if any: Prescribed or Continued at Discharge Note: Overlap Therapy is Warfarin and Anticoagulant Meds if any: NOT Prescribed or Continued at Discharge
[2017-06-24 15:21] VITALS: BP 104/68
--- NOTE | 2017-06-24 15:52 | ECHOCARDIOGRAM REPORT ---
ESTEFANÍA WILLINGHAM Age: 81 : 1935 Gender: F Exam Date: 06/24/2017 10:11 Exam Location: 1 [address] Ht (in): 63 Wt (lb): 170 BSA: 1.88 BP: 120 / 80 Ordering Physician: Madonna Trevizo MD Referring Physician: Madonna Trevizo MD Technologist: Haroldo Torres [facility] Room Number: 171-1 Indications: Chest Pain Rhythm: Sinus Technical Quality: Fair FINDINGS Left Ventricle Normal size left ventricle. Mild concentric left ventricular hypertrophy. No obvious regional wall motion abnormalities. Left ventricular ejection fraction is estimated at borderline normal left ventricular ejection fraction estimated at 50-55%. Normal left ventricular diastolic filling pattern for age. Right Ventricle Normal right ventricular size and function. Right Atrium Normal right atrial size. Left Atrium Normal left atrial size. Mitral Valve Mildly calcified mitral valve annulus. Mitral valve mildly thickened. No mitral regurgitation. Aortic Valve Trileaflet aortic valve. Mild aortic sclerosis. No aortic valve stenosis or regurgitation. Tricuspid Valve Structurally normal tricuspid valve. Trace tricuspid regurgitation. Mild pulmonary hypertension. Right ventricular systolic pressure estimated to be elevated at 39 mmHg. Pulmonic Valve Pulmonic valve not well visualized. No pulmonic regurgitation. Pericardium No pericardial effusion. Great Vessels Normal size aortic root. Normal size inferior vena cava. CONCLUSIONS Normal size left ventricle. Mild concentric left ventricular hypertrophy. Left ventricular ejection fraction is estimated at borderline normal left ventricular ejection fraction estimated at 50-55%. Normal left ventricular diastolic filling pattern for age. Normal right ventricular size and function. Normal atrial size. Trace tricuspid regurgitation. Mild pulmonary hypertension. Ramone Fitzpatrick M.D. (Electronically Signed) Final Date: 24 June 2017 15:51 MEASUREMENTS (Male / Female) Normal Values 2D ECHO LV Diastolic Diameter PLAX 4.6 cm 4.2 - 5.9 / 3.9 - 5.3 cm LV Systolic Diameter PLAX 3.4 cm 2.1 - 4.0 cm LV Fractional Shortening PLAX 26.1 % 25 - 46 % LV Ejection Fraction 2D Teich 51.3 % IVS Diastolic Thickness 1.2 cm LVPW Diastolic Thickness 1.2 cm LV Relative Wall Thickness 0.5 RV Internal Dim ED PLAX 2.8 cm 1.9 - 3.8 cm LVOT Diameter 1.7 cm Aortic Root Diameter 2.6 cm LA Systolic Diameter LX 3.2 cm 3.0 - 4.0 / 2.7 - 3.8 cm Ascending Aorta Diameter 3.2 cm DOPPLER AV Peak Velocity 131.0 cm/s AV Peak Gradient 6.9 mmHg AV Mean Velocity 89.0 cm/s AV Mean Gradient 4.0 mmHg AV Velocity Time Integral 24.7 cm LVOT Peak Velocity 92.8 cm/s LVOT Peak Gradient 3.4 mmHg LVOT Mean Velocity 56.7 cm/s LVOT Mean Gradient 2.0 mmHg LVOT Velocity Time Integral 18.5 cm LVOT Stroke Volume 42.0 cm AV Area Cont Eq vti 1.7 cm AV Area Cont Eq pk 1.6 cm MV Peak Velocity 92.5 cm/s MV Peak Gradient 3.4 mmHg MV Mean Velocity 57.3 cm/s MV Mean Gradient 2.0 mmHg Mitral E Point Velocity 80.2 cm/s Mitral A Point Velocity 57.1 cm/s Mitral E to A Ratio 1.4 MV PHT Velocity 98.0 cm/s MV Deceleration [place] 506.0 cm/s MV Pressure Half Time 58.1 ms MV Area PHT 3.8 cm MV Deceleration Time 239.0 ms TR Peak Velocity 293.0 cm/s TR Peak Gradient 34.3 mmHg Right Atrial Pressure 5.0 mmHg Pulmonary Artery Systolic Pressu 39.3 mmHg Right Ventricular Systolic Press 39.3 mmHg PV Peak Velocity 112.0 cm/s PV Peak Gradient 5.0 mmHg PV Mean Velocity 74.9 cm/s PV Mean Gradient 3.0 mmHg PV Velocity Time Integral 21.3 cm LV E' Lateral Velocity 9.0 cm/s Mitral E to LV E' Lateral Ratio 8.9 LV E' Septal Velocity 8.1 cm/s Mitral E to LV E' Septal Ratio 9.9
--- NOTE | 2017-06-24 18:40 | PN- Cardiology ---
Subjective Subjective: Shortness of breath on exertion, chest discomfort when lying on her side, chest discomfort with inspiration, earlier fever, normal WBC count with left shift, elevated ESR, CRP, etc. Objective Vital Signs and I&Os Vital Signs Date Time Temp Pulse Resp B/P B/P Pulse O2 O2 Flow FiO2 Mean Ox Delivery Rate 06/24 1521 98.9 95 20 104/68 95 Room Air 06/24 0900 98.3 06/24 0900 98.3 92 24 138/70 95 Room Air 06/24 0800 Room Air 06/24 0706 101.0 06/24 0651 101.0 99 20 120/80 94 Room Air 06/23 2259 98.4 94 21 126/74 95 06/23 2110 93 Intake & Output 06/24 1600 06/24 0800 06/24 0000 06/23 1600 06/23 0800 06/23 0000 Intake Total 500 110 250 Output Total Balance 500 110 250 Intake, IV 20 10 Intake, Oral 480 100 250 Patient 173 lb 171 lb 170 lb Weight Weight Bed scale Measurement Method Physical Exam: Well-developed, well-nourished elderly female in no acute distress with nasal oxygen in place. Vital signs: See above. HEENT: Normocephalic, atraumatic, EOMI, moist mucous membranes. Neck: No JVD, no bruits. Lungs: Few bibasilar crackles. Heart: S1, S2 with no murmur, gallop, or rub. PMI fifth ICS at MCL. Abdomen: Soft, nontender, positive bowel sounds. Extremities: No edema. Current Medications: Current Medications Sig/Ramsey Start time Last Medication Dose Route Stop Time Status Admin Acetaminophen 650 MG Q6PRN PRN 06/24 0530 AC 06/24 PO 0706 Aspirin 325 MG DAILY 06/24 1000 AC 06/24 PO 0907 Atorvastatin Calcium 40 MG 1700 06/24 1700 AC 06/24 PO 1803 Enoxaparin Sodium 40 MG DAILY 06/24 1000 AC 06/24 SC 0911 Enoxaparin Sodium 40 MG DAILY 06/24 0600 DC SC Heparin Sodium 5,000 UNIT Q8 06/23 2200 DC 06/23 (Porcine) SC 2111 Metoprolol Succinate 25 MG 2100 06/24 2100 AC PO Metoprolol Succinate 25 MG DAILY 06/23 1706 DC 06/23 PO 211 Omeprazole 20 MG DAILY AC 06/24 0700 AC 06/24 PO 0517 Results Last 48 Hrs of Labs/Mics: Laboratory Tests 06/24/17 1550: Urine Color YEL, Urine Clarity CLEAR, Urine pH 6.0, Ur Specific [place] 1.010, Urine Protein TRACE H, Urine Ketones NEG, Urine Nitrite NEG, Urine Bilirubin NEG, Urine Urobilinogen 0.2, Ur Leukocyte Esterase NEG, Ur Microscopic SEDIMENT EXAMINED, Urine RBC RARE, Urine WBC 1-3 H, Ur Epithelial Cells RARE, Urine Bacteria FEW H, Urine Mucus RARE, Urine Hemoglobin SMALL H, Urine Glucose NEG 06/24/17 0610: Anion Gap 11, Estimated GFR > 60, BUN/Creatinine Ratio 22.9, C-Reactive Prot, Quant > 9.0 H, C-React Prot High Sens > 15.0 H, CBC w Diff NO MAN DIFF REQ, RBC 3.74 L, MCV 96.0, MCH 32.3 H, MCHC 33.6, RDW 13.4, MPV 7.9, Gran % 80.1 H , Lymphocytes % 10.8 L, Monocytes % 8.5, Eosinophils % 0.3, Basophils % 0.3, Absolute Granulocytes 8.0 H, Absolute Lymphocytes 1.1 L, Absolute Monocytes 0.8 H, Absolute Eosinophils 0, Absolute Basophils 0, ESR Westergren 60 H 06/23/17 2100: Troponin I < 0.01 06/23/17 1515: Troponin I < 0.01 06/23/17 1215: D-Dimer High Sensitivty 359 H 06/23/17 1213: Anion Gap 13, Estimated GFR > 60, BUN/Creatinine Ratio 20.0, Glucose 122 H, Hemoglobin A1c 5.7, Calcium 9.8, Magnesium 1.9, Total Bilirubin 1.2, AST 20, ALT 22, Alkaline Phosphatase 87, Troponin I < 0.01, Total Protein 7.1, Albumin 4.2, Globulin 2.9, Albumin/Globulin Ratio 1.4, TSH 2.480, Free T4 1.55, Free T3 3.6, CBC w Diff NO MAN DIFF REQ, RBC 4.18 L, MCV 95.4, MCH 32.3 H, MCHC 33.9, RDW 13.1, MPV 7.4, Gran % 74.2, Lymphocytes % 17.3 L, Monocytes % 7.9, Eosinophils % 0.2, Basophils % 0.4, Absolute Granulocytes 7.5 H, Absolute Lymphocytes 1.8, Absolute Monocytes 0.8 H, Absolute Eosinophils 0, Absolute Basophils 0 Microbiology 06/23 1500 NASOPHARYN: Influenza Virus A & B Rapid Smear - COMP Recent Imaging Studies: Echocardiogram 06/24/2017: Normal size left ventricle. Mild concentric left ventricular hypertrophy. Left ventricular ejection fraction is estimated at borderline normal left ventricular ejection fraction estimated at 50-55%. Normal left ventricular diastolic filling pattern for age. Normal right ventricular size and function. Normal atrial size. Trace tricuspid regurgitation. Mild pulmonary hypertension. Assessment/Plan Assessment/Plan [id number] w/ hx HTN, HLD, recently discovered AF on 24-hour Holter monitoring who presents with complaints of severe chest pain that is worse with movement and progressive shortness of breath over the past month with a low-grade temperature, minor concave upward ST segment elevation, minor WI depression in some leads, and WI elevation in the reciprocal lead aVR on her 12-lead ECG, and a trace pericardial effusion on her chest CTA which could suggest pericardial inflammation, but who also now has the new issue of atrial fibrillation. Fortunately, she is in sinus rhythm now, but we have no way of knowing how long she was in the atrial fibrillation and need to consider anticoagulation given her elevated [id number] score of at least 4 (female=1 pt, HTN=1 pt, age >75=2 pts). This would give her a yearly unadjusted stroke rate of 4.8% without anticoagulation. History, physical, laboratory data consistent with ongoing inflammation/ infection. Recommendations: * Repeat CXR or chest CT. * Repeat ECG. * Follow up cultures. * Consider ID input. * DVT prophylaxis. * Maintaining sinus rhythm, no urgency to begin anticoagulation. Continue telemetry? Yes
[2017-06-24 22:44] VITALS: BP 148/76
--- NOTE | 2017-06-24 22:51 | RADIOLOGY REPORT ---
EXAMINATION: XR PORTABLE CHEST CLINICAL INFORMATION: Shortness of breath COMPARISON: 06/23/2017 TECHNIQUE: Portable frontal view of the chest was obtained. FINDINGS: No focal consolidation, pulmonary edema, or pleural effusion. Stable cardiomediastinal silhouette. IMPRESSION: No acute cardiopulmonary findings.
[2017-06-25 06:47] VITALS: BP 126/80
--- NOTE | 2017-06-25 08:35 | PN- Housestaff ---
Rubia Barajas 06/25/17 0834: Subjective Follow-up For: #Chest pain likely 2/2 Pericarditis #Paroxysmal A-fib #PMH of HTN, HLD Tele-Events Since Last Visit: A-flutter/fib like episodes starting 2AM overnight and in a-fib rhythm, HR >120s Subjective: Overnight rhythmatic change as above, and patient still complained of SOB on exertion, however no overnight feeling of chills/fever. Eating drinking all well but low on appetite as being concerned about what was going on with her. No other specific complaint. Review of Systems Constitutional: Reports: see HPI. Objective Last 24 Hrs of Vital Signs/I&O Vital Signs Date Time Temp Pulse Resp B/P B/P Pulse O2 O2 Flow FiO2 Mean Ox Delivery Rate 06/25 0647 99.6 102 20 126/80 95 Room Air 06/24 2248 102 148/76 06/24 2244 99.9 102 20 148/76 94 06/24 1521 98.9 95 20 104/68 95 Room Air 06/24 0900 98.3 06/24 0900 98.3 92 24 138/70 95 Room Air Intake & Output 06/25 1600 06/25 0800 06/25 0000 Intake Total 120 300 Output Total Balance 120 300 Intake, IV 20 Intake, Oral 100 300 Patient 77.819 kg Weight Physical Exam General Appearance: Alert, Oriented X3, Cooperative, No Acute Distress Cardiovascular: Irregular tachy Lungs: Clear to Auscultation, Normal Air Movement Abdomen: Normal Bowel Sounds, Soft, No Tenderness Neurological: Normal Speech Extremities: No Edema, Normal Pulses Current Medications: Current Medications Sig/Ramsey Start time Last Medication Dose Route Stop Time Status Admin Acetaminophen 650 MG Q6PRN PRN 06/24 0530 AC 06/24 PO 0706 Aspirin 325 MG DAILY 06/24 1000 AC 06/24 PO 0907 Atorvastatin Calcium 40 MG 1700 06/24 1700 AC 06/24 PO 1803 Enoxaparin Sodium 40 MG DAILY 06/24 1000 AC 06/24 SC 0911 Metoprolol Succinate 25 MG 2100 06/24 2100 AC 06/24 PO 2248 Metoprolol Succinate 25 MG DAILY 06/23 1706 DC 06/23 PO 2110 Omeprazole 20 MG DAILY AC 06/24 0700 AC 06/25 PO 0603 Last 24 Hrs of Lab/Zeus Results Last 24 Hrs of Labs/Mics: Laboratory Tests 06/25/17 0610: CBC w Diff Pending, WBC Pending, RBC Pending, Hgb Pending, Hct Pending, MCV Pending, MCH Pending, MCHC Pending, RDW Pending, Plt Count Pending, MPV Pending 06/25/17 0408: Troponin I < 0.01 06/24/17 1550: Urine Color YEL, Urine Clarity CLEAR, Urine pH 6.0, Ur Specific [place] 1.010, Urine Protein TRACE H, Urine Ketones NEG, Urine Nitrite NEG, Urine Bilirubin NEG, Urine Urobilinogen 0.2, Ur Leukocyte Esterase NEG, Ur Microscopic SEDIMENT EXAMINED, Urine RBC RARE, Urine WBC 1-3 H, Ur Epithelial Cells RARE, Urine Bacteria FEW H, Urine Mucus RARE, Urine Hemoglobin SMALL H, Urine Glucose NEG Microbiology 06/24 1550 URINE ROUT: Urine Culture - RECD 06/24 944 BLOOD: Blood Culture - RECD 06/24 944 BLOOD: Blood Culture - RECD Assessment/Plan Assessment: Ms. Preciado is a 81yo F w/ PMH of HTN, HLD, GERD, appedectomy, Hip replacement in 2013, and recently outpatient treated pneumonia w/ doxycycline in 04/2017, presented to ER with exertional SOB for a month and sudden onset of left sided non-radiating, sharp, and intermittent chest pain starting the night [employer]. Without significant lab/EKG/imaging abnormality to suggest any active cardiac or pulmonary event contributing to patient's SOB and sudden onset chest pain, it is likely that patient was suffering from unstable Angina pending rule out, and less likely, due to paroxysmal a-fib from recent findings. Problem list #Pericardial Effusion #L chest pain #Paroxysmal A-fib #PMH of HTN, HLD Plan - Serial troponin & EKG had been negative - Continue ASA 325mg daily, however as patient is now in A-fib, she would need anticoagulation. Pending cardio's input. - UA negative for UTI and patient denied urinary symptoms. CXR clear of pneumonia, and no fever/white count signifying infection. - CRP +ve, ESR 60, No white count on lab, still aligning with picture of pericarditis. - Blood culture x 2 sent for Tmax 101.0 overnight 06/24. However, patient's temp likely related to her pericarditis. - Pending cardio follow up. - ECHO showed borderline EF 50-55%. DVT prophylaxis Heparin + ALPS Heart Healthy Diet DNR/DNI Problem List: 1. Chest pain 2. Pericardial effusion 3. Paroxysmal A-fib Pain Ratin Pain Location: NA Pain Goal: Remain pain free Pain Plan: see AP Tomorrow's Labs & Rationales: RODRIGO Klein MD,Imtiaz 06/25/17 1303: Attending MD Review Statement Attending Statement Attending MD Statement: examined this patient, discuss w/resident/PA/SENIOR DATA WAREHOUSE DEVELOPER, agreed w/resident/PA/SENIOR DATA WAREHOUSE DEVELOPER, reviewed EMR data (avail), discussed with nursing, discussed with case mgmt, amended to note Attending Assessment/Plan: Patient seen and examined. She went into atrial fibrillation overnight and has been with rapid ventricular response despite receiving her dose of Toprol XL 25 mg yesterday. She continues to complain of shortness of breath intermittently at night and during the day both at rest and with exertion. She complained of the symptoms during his hospitalization even with she was in normal sinus rhythm. Apparently she had pulmonary function test done as an outpatient prior to hospitalization on account of this complaint of shortness of breath. She has been seen by the pulmonology service. Her pulmonary function tests were within normal limits according to the certified corporate travel executive. Chest x-ray and CT imaging shows no evidence of any acute pathology. Patient's physical examination is benign.She is maintaining saturation at 96% on room air. It is unclear the etiology of her shortness of breath. Recommendations: -Echocardiogram shows no evidence of pericardial effusion. Begin patient on anticoagulation therapy with Eliquis Due to her elevated stroke risk. -Patient requires more optimal rate control. She is currently on extended release beta-armin therapy. Increase dose to 50 mg per recommendations of the cardiology service. -
[2017-06-25 08:41] LABS: ABSOLUTE BASOPHIL COUNT 0 /CUMM (0.0-0.2); ABSOLUTE EOSINOPHIL COUNT 0.1 /CUMM (0.0-0.7); ABSOLUTE GRANULOCYTE CT 6.5 /CUMM (1.4-6.5); ABSOLUTE LYMPH COUNT 1.6 /CUMM (1.2-3.4); ABSOLUTE MONOCYTE COUNT 0.7 /CUMM (0.10-0.60); BASOPHIL % 0.3 % (0.0-2.0); EOSINOPHIL % 1.3 % (0-5); GRANULOCYTE % 72.5 % (42.2-75.2); HEMATOCRIT 36.1 % (37-47); MEAN CORPUSCULAR HGB 32.3 PG (27.0-31.0); MEAN CORPUSCULAR HGB CONC 33.7 G/DL (33.0-37.0); MEAN CORPUSCULAR VOLUME 95.9 FL (81.0-99.0); MEAN PLATELET VOLUME 7.7 FL (7.4-10.4); PLATELET COUNT 347 /CUMM (130-400); RBC DISTRIBUTION WIDTH 13.3 % (11.5-14.5); RED BLOOD CELL CT 3.76 /CUMM (4.20-5.40)
--- NOTE | 2017-06-25 10:30 | Cons- Pulmonary ---
General Information and HPI Consulting Request Date of Consult: 06/25/17 Requested By: Ernie Reason for Consult: Shortness of breath History of Present Illness: Patient is an 81-year-old distant smoker admitted with increasing shortness breath and chest pain. Report shortness breath since an episode of pneumonia in April. No chest x-ray was taken. She presented with shortness breath found to be atrial fibrillation with rapid ventricular response. Her chest x-ray was normal CTA was normal room air oximetry is normal. Allergies/Medications Allergies: Coded Allergies: meperidine (From DEMEROL) (LIGHTHEADED 06/23/17) Home Med List: Metoprolol Succ XL (Toprol XL) 25 MG TAB 1 TAB PO DAILY ARRYTHMIA (Reported) Omeprazole 20 MG TABLET.DR 1 TAB PO DAILY aCIDITY (Reported) Pravastatin Sodium 40 MG TABLET 1 TAB PO DAILY HYPERLIPIDEMIA (Reported) Review of Systems Review of Systems Constitutional: Denies: chills, fever. Cardiovascular: Reports: chest pain. Denies: edema. Respiratory: Reports: short of breath. Denies: cough, sputum production, stridor, wheezing. Past History Travel History Traveled to [place] past 21 day No Medical History Blood Transfusion Hx: No Neurological: NONE EENT: NONE Cardiovascular: hypertension, hyperlipidemia Respiratory: pneumonia Gastrointestinal: GERD, hiatal hernia diverticular disease colonic polyps s/p polypectomy internal/external hemorrhoids Hepatic: NONE Renal: NONE Musculoskeletal: osteoarthritis Psychiatric: NONE Endocrine: NONE Blood Disorders: NONE Cancer(s): NONE Surgical History Surgical History: appendectomy, hip replacement, [employer] Psychosocial History Where Do You Live? Home Services at Home: None Smoking Status: Former Smoker (Quitted 1988) ETOH Use: denies use Illicit Drug Use: denies illicit drug use Functional Ability ADLs Independent: dressing, eating, toileting, bathing. Ambulation: independent IADLs Independent: shopping, housework, finances, food prep, telephone, transportation , medication admin. Exam & Diagnostic Data Last 24 Hrs of Vital Signs/I&O Vital Signs Date Time Temp Pulse Resp B/P B/P Pulse O2 O2 Flow FiO2 Mean Ox Delivery Rate 06/25 0647 99.6 102 20 126/80 95 Room Air 06/248 102 148/76 06/24 2244 99.9 102 20 148/76 94 06/24 1521 98.9 95 20 104/68 95 Room Air Intake & Output 06/25 1600 06/25 0800 06/25 0000 Intake Total 120 300 Output Total Balance 120 300 Intake, IV 20 Intake, Oral 100 300 Patient 172 lb Weight Patient is a comfortable woman respiratory oximetry 95% HNT exam shows no adenopathy exam for chest shows clear lung lizama are no wheezes or crackles cardiac exam shows an irregular rhythm without murmur abdomen is soft nontender there's no lower extremity edema Last 48 Hrs of Labs/Zeus: Laboratory Tests 06/25/17 0610: CBC w Diff NO MAN DIFF REQ, RBC 3.76 L, MCV 95.9, MCH 32.3 H, MCHC 33.7, RDW 13.3, MPV 7.7, Gran % 72.5, Lymphocytes % 18.1 L, Monocytes % 7.8, Eosinophils % 1.3, Basophils % 0.3, Absolute Granulocytes 6.5, Absolute Lymphocytes 1.6, Absolute Monocytes 0.7 H, Absolute Eosinophils 0.1, Absolute Basophils 0 06/25/17 0408: Troponin I < 0.01 06/24/17 1550: Urine Color YEL, Urine Clarity CLEAR, Urine pH 6.0, Ur Specific [place] 1.010, Urine Protein TRACE H, Urine Ketones NEG, Urine Nitrite NEG, Urine Bilirubin NEG, Urine Urobilinogen 0.2, Ur Leukocyte Esterase NEG, Ur Microscopic SEDIMENT EXAMINED, Urine RBC RARE, Urine WBC 1-3 H, Ur Epithelial Cells RARE, Urine Bacteria FEW H, Urine Mucus RARE, Urine Hemoglobin SMALL H, Urine Glucose NEG 06/24/17 0610: Anion Gap 11, Estimated GFR > 60, BUN/Creatinine Ratio 22.9, C-Reactive Prot, Quant > 9.0 H, C-React Prot High Sens > 15.0 H, CBC w Diff NO MAN DIFF REQ, RBC 3.74 L, MCV 96.0, MCH 32.3 H, MCHC 33.6, RDW 13.4, MPV 7.9, Gran % 80.1 H , Lymphocytes % 10.8 L, Monocytes % 8.5, Eosinophils % 0.3, Basophils % 0.3, Absolute Granulocytes 8.0 H, Absolute Lymphocytes 1.1 L, Absolute Monocytes 0.8 H, Absolute Eosinophils 0, Absolute Basophils 0, ESR Westergren 60 H 06/23/17 2100: Troponin I < 0.01 06/23/17 1515: Troponin I < 0.01 06/23/17 1215: D-Dimer High Sensitivty 359 H 06/23/17 1213: Anion Gap 13, Estimated GFR > 60, BUN/Creatinine Ratio 20.0, Glucose 122 H, Hemoglobin A1c 5.7, Calcium 9.8, Magnesium 1.9, Total Bilirubin 1.2, AST 20, ALT 22, Alkaline Phosphatase 87, Troponin I < 0.01, Total Protein 7.1, Albumin 4.2, Globulin 2.9, Albumin/Globulin Ratio 1.4, TSH 2.480, Free T4 1.55, Free T3 3.6, CBC w Diff NO MAN DIFF REQ, RBC 4.18 L, MCV 95.4, MCH 32.3 H, MCHC 33.9, RDW 13.1, MPV 7.4, Gran % 74.2, Lymphocytes % 17.3 L, Monocytes % 7.9, Eosinophils % 0.2, Basophils % 0.4, Absolute Granulocytes 7.5 H, Absolute Lymphocytes 1.8, Absolute Monocytes 0.8 H, Absolute Eosinophils 0, Absolute Basophils 0 Microbiology 06/23 1500 NASOPHARYN: Influenza Virus A & B Rapid Smear - COMP Assessment/Plan Impression/Plan: Patient is an 81-year-old woman is had shortness breath over the past 3 months pulmonary function test done recently showed no evidence of airflow obstruction. Her lung volumes flow rates are normal. CT of the chest shows no parenchymal abnormalities. Her exam is normal. At this point there is no evidence to suggest an underlying pulmonary cause for her shortness of breath Recommendations: Further management of her cardiac arrhythmias per cardiology. No further pulmonary evaluation appears indicated at this time. Patient does have complaints of of falling asleep during the day and in view of her atrial fibrillation and mild pulmonary hypertension if no other etiologies can be found consider sleep apnea and outpatient polysomnography Consult Acknowledgment - Thank you for your consult request.
--- NOTE | 2017-06-25 11:11 | Discharge Summary ---
Visit Information Visit Dates Admission Date: 06/23/17 Discharge Date: 06/30/17 Hospital Course Course Attending Physician: Imtiaz Klein MD Primary Care Physician: Manjit MORAN,[facility] Course: Ms. 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 Without significant lab/EKG/imaging abnormality to suggest any active cardiac or pulmonary event contributing to patient's SOB and sudden onset chest pain, it is likely that patient was suffering from unstable Angina pending rule out, and less likely, due to paroxysmal a-fib from recent findings. She denied for any palpitation, fever, chills, nausea, vomiting, dizziness, blurry of vision,.At her baseline she lives with the family with the and does all his activities without any problem. Of note -she was recently evaluated for arrhythmia by her primary care physician Dr. Saravia, by 24 hour Holter monitoring which showed evidence of paroxysmal atrial fibrillation(according to Dr. Fitzpatrick's note). ED course -vital signs temperature 98.1, pulse 87, respiratory rate 18, blood pressure 140/80, SPO2 96% on room air. Blood workup showed RBC 4.18, hemoglobin 13.5, hematocrit 39.9, platelet count 359, sodium 138, potassium 4.0, chloride 102, anion gap 13, BUN 16, creatinine 0.8, glucose 122, calcium 9.8, total bilirubin 1.2, AST 20, ALT 22, alkaline phosphatase 87, troponin I less than 0.01, Albumin 4.2, d-dimer -359 Chest x-ray -no acute cardiopulmonary abnormality CTA -no evidence of PE, trace pericardial effusion, soft tissue nodule in right side of the breast. Problem list #Pericardial Effusion/Pericarditis w/ chest pain, resolved #Paroxysmal A-fib #PMH of HTN, HLD On admission, patient's serial troponin & EKG had been negative. CTA of the chest showed trace pericardial effusion, however with negative pericardial findings on echocardiograph. Patient had overnight fever episodes and chest pain on/off, CRP +ve, ESR 60, which warranted her for Aspirin 325mg treatment for possible pericarditis. Patient was also started on eliquis 5mg bid, with [id number] of 3 (female 1 + Age >74 2). Patient was started on metorpolol XL and dose increased eventually to 100mg morning daily and her heart rate spontaneously returned to normal sinus rhythm. Patient had no more fever over the last 5 days of hospital stay, chest pain resolved spontaneouly, and her dyspnea, likely due to atrial fibrillation, resolved after her heart rate/rhythm normalized. Blood culture had no growth. Patient was discharge home with anticoagulation and advised to follow up with Dr. Fitzpatrick for further outpatient management. DVT prophylaxis eliquis + ALPS Heart Healthy Diet DNR/DNI Allergies: Coded Allergies: meperidine (From DEMEROL) (LIGHTHEADED 06/23/17) Pertinent Lab Results: SERVICE DATE: 06/23/17-910 EXAM TYPE: RAD - XRY-CHEST XRAY, TWO VIEWS IMPRESSION: No acute pulmonary findings. SERVICE DATE: 06/23/17 EXAM TYPE: CAT - CTA CHEST-PULMONARY EMBOLISM IMPRESSION: 1. No pulmonary embolism. 2. Trace pericardial effusion. 3. No acute pulmonary findings. 4. Soft tissue nodule in the upper quadrant of the right breast. This should be correlated with mammography. VTE: negative SERVICE DATE: 06/24/17- EXAM TYPE: RAD - XRY-PORTABLE CHEST XRAY IMPRESSION: No acute cardiopulmonary findings. SERVICE DATE: 06/24/17-599 EXAM TYPE: CARD - ECHOCARDIOGRAM CONCLUSIONS Normal size left ventricle. Mild concentric left ventricular hypertrophy. Left ventricular ejection fraction is estimated at borderline normal left ventricular ejection fraction estimated at 50-55%. Normal left ventricular diastolic filling pattern for age. Normal right ventricular size and function. Normal atrial size. Trace tricuspid regurgitation. Mild pulmonary hypertension. Ramone Fitzpatrick M.D. (Electronically Signed) Final Date: 24 June 2017 15:51 Disposition Summary Disposition Principal Diagnosis: #Chest pain 2/2 Pericardial Effusion/Pericarditis #Paroxysmal A-fib #PMH of HTN, HLD Additional Diagnosis: see above Discharge Disposition: home or self care Discharge Instructions General Discharge Information Code Status: Do Not Resucitate/Intubat Patient's Diet: Heart Healthy Patient's Activity: as tolerated Follow-Up Instructions/Appts: - Please continue taking Eliquis at prescribed regimen and follow up with your printed circuit board pcb designer for refill/dose adjustment. Please visit ER for any active bleeding from mouth/nose/rectum, and only stop Eliquis under physician's guidance. - Please follow up with your printed circuit board pcb designer Dr. Fitzpatrick within 1-2 weeks of discharge. - Please follow up with outpatient mammogram for follow-up of Breast nodule noted on CT scan. - Please follow up with your primary care physician within 1-2 weeks of discharge. Inform your primary care physician of this admission to [facility]. - Continue your current medications per discharge instructions. - Please watch for these problems: Fever, Chills, Nausea, Vomiting, Shortness of Breath, Productive Cough, Chest Pain/Discomfort, Abdominal Pain, Active Bleeding or Bloody urine/stool. Medications at Discharge Discharge Medications: Stop taking the following medications: Metoprolol Succ XL (Toprol XL) 25 MG TAB ORAL DAILY Qty = 30 Continue taking these medications: Pravastatin Sodium (Pravastatin Sodium) 40 MG TABLET 1 Tablet ORAL DAILY Qty = 30 Comments: Last Taken:06/29/16 Time:5 pm Omeprazole (Omeprazole) 20 MG TABLET.DR 1 Tablet ORAL DAILY Qty = 30 Comments: received subsitute in hospital 06/30/17-6 am Start taking the following new medications: Metoprolol Succ XL (Toprol XL) 100 MG TAB.ER.24H 100 Milligram ORAL DAILY @8AM Qty = 30 No Refills Instructions: . Comments: Last Taken:06/30/17 Time:0900 Apixaban (Eliquis) 5 MG TABLET 5 Milligram ORAL TWICE DAILY Qty = 60 No Refills Instructions: . Comments: Last Taken:06/30/17 Time:0900 Copies To: Manjit MORAN,Susi
--- NOTE | 2017-06-25 12:31 | PN- Cardiology ---
Subjective Subjective: Still feeling poorly. Objective Vital Signs and I&Os Vital Signs Date Time Temp Pulse Resp B/P B/P Pulse O2 O2 Flow FiO2 Mean Ox Delivery Rate 06/25 0800 96 Room Air 06/25 0647 99.6 102 20 126/80 95 Room Air 06/24 2248 102 148/76 06/24 2244 99.9 102 20 148/76 94 06/24 1521 98.9 95 20 104/68 95 Room Air Intake & Output 06/25 1600 06/25 0800 06/25 0000 06/24 1600 06/24 0800 06/24 0000 Intake Total 120 300 700 110 250 Output Total Balance 120 300 700 110 250 Intake, IV 20 20 10 Intake, Oral 100 300 680 100 250 Patient 172 lb 173 lb 171 lb Weight Weight Bed scale Measurement Method Physical Exam: Well-developed, well-nourished elderly female in NAD w/ nasal oxygen in place. Vital signs: See above. HEENT: Normocephalic, atraumatic, EOMI, moist mucous membranes. Neck: No JVD, no bruits. Lungs: Few bibasilar crackles. Heart: S1, S2 with no murmur, gallop, or rub. PMI fifth ICS at [facility]. Abdomen: Soft, nontender, positive bowel sounds. Extremities: No edema. Current Medications: Current Medications Sig/Ramsey Start time Last Medication Dose Route Stop Time Status Admin Acetaminophen 650 MG Q6PRN PRN 06/24 0530 AC 06/24 PO 0706 Aspirin 325 MG DAILY 06/24 1000 AC 06/25 PO 0924 Atorvastatin Calcium 40 MG 1700 06/24 1700 AC 06/24 PO 1803 Enoxaparin Sodium 40 MG DAILY 06/24 1000 AC 06/25 SC 0924 Metoprolol Succinate 25 MG 2100 06/24 2100 AC 06/24 PO 2248 Omeprazole 20 MG DAILY AC 06/24 0700 AC 06/25 PO 0603 Results Last 48 Hrs of Labs/Mics: Laboratory Tests 06/25/17 0610: CBC w Diff NO MAN DIFF REQ, RBC 3.76 L, MCV 95.9, MCH 32.3 H, MCHC 33.7, RDW 13.3, MPV 7.7, Gran % 72.5, Lymphocytes % 18.1 L, Monocytes % 7.8, Eosinophils % 1.3, Basophils % 0.3, Absolute Granulocytes 6.5, Absolute Lymphocytes 1.6, Absolute Monocytes 0.7 H, Absolute Eosinophils 0.1, Absolute Basophils 0 06/25/17 0408: Troponin I < 0.01 06/24/17 1550: Urine Color YEL, Urine Clarity CLEAR, Urine pH 6.0, Ur Specific [place] 1.010, Urine Protein TRACE H, Urine Ketones NEG, Urine Nitrite NEG, Urine Bilirubin NEG, Urine Urobilinogen 0.2, Ur Leukocyte Esterase NEG, Ur Microscopic SEDIMENT EXAMINED, Urine RBC RARE, Urine WBC 1-3 H, Ur Epithelial Cells RARE, Urine Bacteria FEW H, Urine Mucus RARE, Urine Hemoglobin SMALL H, Urine Glucose NEG 06/24/17 0610: Anion Gap 11, Estimated GFR > 60, BUN/Creatinine Ratio 22.9, C-Reactive Prot, Quant > 9.0 H, C-React Prot High Sens > 15.0 H, CBC w Diff NO MAN DIFF REQ, RBC 3.74 L, MCV 96.0, MCH 32.3 H, MCHC 33.6, RDW 13.4, MPV 7.9, Gran % 80.1 H , Lymphocytes % 10.8 L, Monocytes % 8.5, Eosinophils % 0.3, Basophils % 0.3, Absolute Granulocytes 8.0 H, Absolute Lymphocytes 1.1 L, Absolute Monocytes 0.8 H, Absolute Eosinophils 0, Absolute Basophils 0, ESR Westergren 60 H 06/23/17 2100: Troponin I < 0.01 06/23/17 1515: Troponin I < 0.01 Microbiology 06/23 1500 NASOPHARYN: Influenza Virus A & B Rapid Smear - COMP Recent Imaging Studies: CXR 06/24/2017: No acute cardiopulmonary process. Assessment/Plan Assessment/Plan [id number] w/ hx HTN, HLD, recently discovered AF on OP 24-hour Holter monitoring who presented w/ c/o CP that was worse w/ movement & progressive SOB over the past month w/ initally a low-grade temperature, minor concave upward ST segment elevation, minor MD depression in some leads, and MD elevation in the reciprocal lead, aVR on her ECG, and a trace pericardial effusion on chest CTA which could suggest pericardial inflammation, but who also went into AF around 2 :00 a.m. today, 06/25/2017. Recommendations: * Need to consider AC given the AF and elevated [id number] score of at least 4 (female=1 pt, HTN=1 pt, age >75=2 pts) & yearly unadjusted stroke rate of 4.8% w /o AC. Would start on the DOAC Eliquis (apixaban) 5 mg twice daily (cr=0.7 mg/dl , wt=78 kg, age 81 yrs). * Also need to address the ventricular response to her atrial fibrillation which has been consistently >100 bpm since she went into AF. Would increase metoprolol succinate from 25 mg daily to 50 mg daily and titrate up further as needed. * Finally, would recommend IV furosemide 20 mg today and reassess the need for further IV diuresis in the a.m. * DVT prophylaxis being addressed. Continue telemetry? Yes
[2017-06-25 14:35] VITALS: BP 120/70
[2017-06-25 21:53] VITALS: BP 140/70
[2017-06-26 06:36] VITALS: BP 108/66
--- NOTE | 2017-06-26 08:37 | PN- Housestaff ---
Rubia Barajas 06/26/17 0836: Subjective Follow-up For: #Chest pain likely 2/2 Pericarditis #Paroxysmal A-fib #PMH of HTN, HLD Tele-Events Since Last Visit: Afib/flutter 90-110s. Subjective: No overnight event. Patient was concerned about discharge planning of STR and also her heart rate. However, denied CP/fever overnight .Still low appetite. Ok to ambulate without assistance but still SOB while exerted. No other specific complaint. Review of Systems Constitutional: Reports: see HPI. Objective Last 24 Hrs of Vital Signs/I&O Vital Signs Date Time Temp Pulse Resp B/P B/P Pulse O2 O2 Flow FiO2 Mean Ox Delivery Rate 06/27 635 98.8 112 20 108/66 94 06/25 2153 98.6 102 18 140/70 95 Room Air 06/25 2151 95 Room Air 06/25 212 109 140/70 06/25 1438 116 120/70 06/25 1435 98.4 116 20 120/70 97 Room Air Intake & Output 06/26 1600 06/26 0800 06/26 0000 Intake Total Output Total 400 Balance -400 Output, Urine 400 Patient 76.657 kg Weight Weight Bed scale Measurement Method Physical Exam General Appearance: Alert, Oriented X3, Cooperative, No Acute Distress Cardiovascular: Irregular tachy Lungs: Clear to Auscultation, Normal Air Movement Abdomen: Normal Bowel Sounds, Soft, No Tenderness Neurological: Normal Speech Extremities: No Edema, Normal Pulses Current Medications: Current Medications Sig/Ramsey Start time Last Medication Dose Route Stop Time Status Admin Acetaminophen 650 MG Q6PRN PRN 06/24 0530 AC 06/24 PO 0706 Apixaban 5 MG BID 06/25 2200 AC 06/26 PO 0907 Aspirin 325 MG DAILY 06/24 1000 AC 06/26 PO 0907 Atorvastatin Calcium 40 MG 1700 06/24 1700 AC 06/25 PO 1643 Enoxaparin Sodium 40 MG DAILY 06/24 1000 DC 06/25 SC 0924 Furosemide 40 MG .STK-MED ONE 06/25 1636 DC IV 06/25 1637 Furosemide 20 MG ONCE ONE 06/25 1630 DC 06/25 IV 06/25 1631 1643 Metoprolol Succinate 50 MG 2100 06/25 2100 AC 06/25 PO 2125 Metoprolol Succinate 25 MG 06/24 2100 DC 06/24 PO 2248 Metoprolol Tartrate 25 MG ONCE ONE 06/25 1400 DC 06/25 PO 06/25 1401 1438 Omeprazole 20 MG DAILY AC 06/24 0700 AC 06/26 PO 0612 Assessment/Plan Assessment: Ms. 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 Without significant lab/EKG/imaging abnormality to suggest any active cardiac or pulmonary event contributing to patient's SOB and sudden onset chest pain, it is likely that patient was suffering from unstable Angina pending rule out, and less likely, due to paroxysmal a-fib from recent findings. Problem list #Pericardial Effusion #L chest pain #Paroxysmal A-fib #PMH of HTN, HLD Plan - Serial troponin & EKG had been negative - Continue ASA 325mg daily. - Cardio recommended eliquis 5mg bid, and increased metoprolol XL to 50mg daily. Will continue and follow up heart rate and rhythm. - UA negative for UTI and patient denied urinary symptoms. CXR clear of pneumonia, and no fever/white count signifying infection. - CRP +ve, ESR 60, No white count on lab, still aligning with picture of pericarditis. - Blood culture x 2 sent for Tmax 101.0 overnight 06/24. However, patient's temp likely related to her pericarditis. No growth so far - Pending cardio follow up. - ECHO showed borderline EF 50-55%. DVT prophylaxis eliquis + ALPS Heart Healthy Diet DNR/DNI Problem List: 1. Pericardial effusion 2. Paroxysmal A-fib Pain Ratin Pain Location: NA Pain Goal: Remain pain free Pain Plan: see AP Tomorrow's Labs & Rationales: PAUL Klein MD,Imtiaz 06/26/17 1056: Attending MD Review Statement Attending Statement Attending MD Statement: examined this patient, discuss w/resident/PA/ROLLOFF TRUCK DRIVER, agreed w/resident/PA/ROLLOFF TRUCK DRIVER, reviewed EMR data (avail), discussed with nursing, discussed with case mgmt, amended to note Attending Assessment/Plan: Patient seen and examined. Resting comfortably and does not appear to be in any acute distress. On telemetry monitoring she remains in atrial fibrillation/ flutter. She continues to remain tachycardic intermittently with heart rate in the 120s. She received Toprol-XL 25 mg the evening of June 24. She received metoprolol tartrate 25 mg p.o. in the afternoon and then the 50 mg dose of Toprol-XL last night. Patient continues to complain of shortness of breath. She states that is predominantly with exercise. She reports that when she gets up to the use of the bathroom she feels very short of breath and has come back on rest. She reports very little episodes of dyspnea when she is at rest. She reports that when talking she occasionally gets short of breath. She reported feeling short of breath during my conversation with her this morning. At the same time i noted that her heart rate was in the 120s. She fortunately has been afebrile since the first episode of fever for a few days ago. On examination she does not appear to be in acute distress. Heart sounds are regular. Lungs remain clear to auscultation bilaterally. She has no peripheral edema. Recommendations: -She requires further optimization of rate control. Follow-up with the cardiology service regarding either escalating the dose of her beta-armin or starting the patient on a different regimen. She has a history of asthma or COPD and no evidence of bronchospasm. Shortness of breath may be related to paroxysmal A. fib. -Continue anticoagulation with Eliquis. -She is afebrile with no leukocytosis. Continue to monitor patient off antibiotic therapy. -Cardiology service recommended a dose of Lasix yesterday. Chest x-ray shows no evidence of volume congestion. She shows no evidence of heart failure on her echocardiogram. I do not believe there is any role for further diuresis at this time. She has shown no improvement in her symptoms despite the Lasix she received yesterday.
--- NOTE | 2017-06-26 08:51 | PN- Pulmonary ---
Subjective HPI/Critical Care Issues: Patient shortness of breath is better at rest but dyspneic with exertion she remains in atrial fibrillation with rapid ventricular response Objective Current Medications: Current Medications Sig/Ramsey Start time Last Medication Dose Route Stop Time Status Admin Acetaminophen 650 MG Q6PRN PRN 06/24 0530 AC 06/24 PO 0706 Apixaban 5 MG BID 06/25 2200 AC 06/25 PO 2053 Aspirin 325 MG DAILY 06/24 1000 AC 06/25 PO 0924 Atorvastatin Calcium 40 MG 1700 06/24 1700 AC 06/25 PO 1643 Enoxaparin Sodium 40 MG DAILY 06/24 1000 DC 06/25 SC 0924 Furosemide 40 MG .STK-MED ONE 06/25 1636 DC IV 06/25 1637 Furosemide 20 MG ONCE ONE 06/25 1630 DC 06/25 IV 06/25 1631 1643 Metoprolol Succinate 50 MG 2100 06/25 2100 AC 06/25 PO 2125 Metoprolol Succinate 25 MG 2100 06/24 2100 DC 06/24 PO 2248 Metoprolol Tartrate 25 MG ONCE ONE 06/25 1400 DC 06/25 PO 06/25 1401 1438 Omeprazole 20 MG DAILY AC 06/24 0700 AC 06/26 PO 0612 Vital Signs & I&O Last 24 Hrs of Vitals and I&O: Vital Signs Date Time Temp Pulse Resp B/P B/P Pulse O2 O2 Flow FiO2 Mean Ox Delivery Rate 06/26 0636 98.8 112 20 108/66 94 06/25 2153 98.6 102 18 140/70 95 Room Air 06/25 2151 95 Room Air 06/25 2125 109 140/70 06/25 1438 116 120/70 06/25 1435 98.4 116 20 120/70 97 Room Air Intake & Output 06/26 1600 06/26 0800 06/26 0000 Intake Total Output Total 400 Balance -400 Output, Urine 400 Patient 169 lb Weight Weight Bed scale Measurement Method Saturation room air 94-95% exam for chest shows clear lung lizama cardiac exam shows an irregular rhythm with rapid ventricular response Impression/Plan Impression/Plan Impression/Plan: D1-year[age] woman admitted with shortness breath found to be age fibrillation rapid ventricular response for pulmonary evaluation is inclusive abnormal CAT scan room air oxygen saturation exam and pulmonary function testing. Recommendations: Further management of her cardiac arrhythmias per cardiology. Assess BNP
--- NOTE | 2017-06-26 18:09 | PN- Cardiology ---
Subjective Subjective: Clinically stable with no new CV symptoms. Feeling somewhat better today Objective Vital Signs and I&Os Vital Signs Date Time Temp Pulse Resp B/P B/P Pulse O2 O2 Flow FiO2 Mean Ox Delivery Rate 06/26 0636 98.8 112 20 108/66 94 06/25 2153 98.6 102 18 140/70 95 Room Air 06/25 2151 95 Room Air 06/25 2125 109 140/70 Intake & Output 06/26 1600 06/26 0800 06/26 0000 06/25 1600 06/25 0800 06/25 0000 Intake Total 480 400 120 300 Output Total 400 Balance 480 -400 400 120 300 Intake, IV 20 Intake, Oral 480 400 100 300 Output, Urine 400 Patient 169 lb 172 lb Weight Weight Bed scale Measurement Method Physical Exam: General Appearance: Alert, Oriented X3, Cooperative, No Acute Distress Cardiovascular: Irregular, S1, S2 Lungs: Clear to Auscultation, Normal Air Movement Abdomen: Normal Bowel Sounds, Soft, No Tenderness Neurological: Normal / non focal Extremities: No Edema, Normal Pulses Current Medications: Current Medications Sig/Ramsey Start time Last Medication Dose Route Stop Time Status Admin Acetaminophen 650 MG Q6PRN PRN 06/24 0530 AC 06/24 PO 0706 Apixaban 5 MG BID 06/25 2200 AC 06/26 PO 0907 Aspirin 325 MG DAILY 06/24 1000 AC 06/26 PO 0907 Atorvastatin Calcium 40 MG 1700 06/24 1700 AC 06/25 PO 1643 Metoprolol Succinate 50 MG 2100 06/25 2100 AC 06/25 PO 2125 Omeprazole 20 MG DAILY AC 06/24 0700 AC 06/26 PO 0612 Results Last 48 Hrs of Labs/Mics: Laboratory Tests 06/25/17 0610: CBC w Diff NO MAN DIFF REQ, RBC 3.76 L, MCV 95.9, MCH 32.3 H, MCHC 33.7, RDW 13.3, MPV 7.7, Gran % 72.5, Lymphocytes % 18.1 L, Monocytes % 7.8, Eosinophils % 1.3, Basophils % 0.3, Absolute Granulocytes 6.5, Absolute Lymphocytes 1.6, Absolute Monocytes 0.7 H, Absolute Eosinophils 0.1, Absolute Basophils 0 06/25/17 0408: Troponin I < 0.01 Assessment/Plan Assessment/Plan Assessment: 1. PAF 2. Chest pain syndrome 3. Pericardial effusion 4. Minimally elevated proBNP Recommendations: -COntinue present management - Continue Eliquis - COnsider increasing Metoprolol to 75 daily for improved rate control - Please noted that echocardiogram showed no evidence of pericardial effusion. Continue telemetry? Yes
[2017-06-26 22:27] VITALS: BP 114/80
[2017-06-27 00:30] VITALS: BP 120/88
[2017-06-27 06:53] VITALS: BP 122/80
--- NOTE | 2017-06-27 08:37 | PN- Pulmonary ---
Subjective HPI/Critical Care Issues: Patient continues to have atrial fibrillation with rapid ventricular rate as high as 140 Objective Current Medications: Current Medications Sig/Ramsey Start time Last Medication Dose Route Stop Time Status Admin Acetaminophen 650 MG Q6PRN PRN 06/24 0530 AC 06/24 PO 0706 Apixaban 5 MG BID 06/25 2200 AC 06/27 PO 0818 Aspirin 325 MG DAILY 06/24 1000 AC 06/27 PO 0819 Atorvastatin Calcium 40 MG 1700 06/24 1700 AC 06/26 PO 1720 Metoprolol Succinate 50 MG 2100 06/25 2100 AC 06/26 PO 2031 Omeprazole 20 MG DAILY AC 06/24 0700 AC 06/27 PO 0614 Vital Signs & I&O Last 24 Hrs of Vitals and I&O: Vital Signs Date Time Temp Pulse Resp B/P B/P Pulse O2 O2 Flow FiO2 Mean Ox Delivery Rate 06/27 0653 99.6 105 20 122/80 94 06/27 0030 98.2 134 20 120/88 95 06/27 0000 97 Room Air 06/26 2227 99.6 132 21 114/80 95 06/26 2031 134 Intake & Output 06/27 1600 06/27 0800 06/27 0000 Intake Total 200 0 Output Total 100 Balance 200 -100 Intake, Oral 200 0 Output, Urine 100 Patient 173 lb Weight And saturation room air 94-97% temperature shows clear lung lizama cardiac exam shows a regular rhythm Impression/Plan Impression/Plan Impression/Plan: 81-year-old admitted with increasing shortness of breath with persistent atrial fibrillation and rapid ventricular response as high as 140- 150 with exertion. Recommendations: Further management of her cardiac arrhythmias per cardiology. Assess BNP no further pulmonary suggestions with normal pulmonary function tests CT scan of the chest and room air oximetry
--- NOTE | 2017-06-27 08:56 | PN- Housestaff ---
Yun MORAN,Nathaly 06/27/17 0855: Subjective Follow-up For: #Chest pain likely 2/2 Pericarditis #Paroxysmal A-fib #PMH of HTN, HLD Tele-Events Since Last Visit: Afib/flutter 90-130S Subjective: Patient was seen and examined at bedside, no overnight events, afebrile, still complaining of exertional shortness of breath, decreased appetite. Patient was try to ambulate with assistance today Review of Systems Constitutional: Reports: see HPI. Objective Last 24 Hrs of Vital Signs/I&O Vital Signs Date Time Temp Pulse Resp B/P B/P Pulse O2 O2 Flow FiO2 Mean Ox Delivery Rate 06/27 0653 99.6 105 20 122/80 94 06/27 0030 98.2 134 20 120/88 95 06/27 0000 97 Room Air 06/26 2227 99.6 132 21 114/80 95 06/26 2031 134 Intake & Output 06/27 1600 06/27 0800 06/27 0000 Intake Total 200 0 Output Total 100 Balance 200 -100 Intake, Oral 200 0 Output, Urine 100 Patient 173 lb Weight Physical Exam General Appearance: Alert, Oriented X3, Cooperative, No Acute Distress HEENT: Atraumatic, PERRLA, EOMI, Mucous Membr. moist/pink Neck: Supple, No JVD Cardiovascular: Normal S1, Normal S2 Lungs: Clear to Auscultation Abdomen: Normal Bowel Sounds, Soft, No Tenderness Neurological: Normal Speech Extremities: No Clubbing, No Cyanosis, No Edema, Normal Pulses Assessment/Plan Assessment: Ms. 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 Without significant lab/EKG/imaging abnormality to suggest any active cardiac or pulmonary event contributing to patient's SOB and sudden onset chest pain, it is likely that patient was suffering from unstable Angina pending rule out, and less likely, due to paroxysmal a-fib from recent findings. Problem list #Pericardial Effusion #L chest pain #Paroxysmal A-fib #PMH of HTN, HLD Plan - Serial troponin & EKG had been negative - Continue ASA 325mg daily. -Continue Eliquis 5 mg twice daily Continue metoprolol 50 mg daily - UA negative for UTI and patient denied urinary symptoms. CXR clear of pneumonia, and no fever/white count signifying infection. - CRP +ve, ESR 60, No white count on lab, still aligning with picture of pericarditis. - Blood culture and urine culture negative - ECHO showed borderline EF 50-55%. DVT prophylaxis eliquis + ALPS Heart Healthy Diet DNR/DNI Problem List: 1. Chest pain 2. Paroxysmal A-fib 3. Pericardial effusion Pain Ratin Pain Location: CHEST Pain Goal: Remain pain free Pain Plan: PATHWAY Tomorrow's Labs & Rationales: CBC BEP Ernie MORAN,Imtiaz 06/27/17 1109: Attending MD Review Statement Attending Statement Attending MD Statement: examined this patient, discuss w/resident/PA/TICKET CHOPPER ASSEMBLER, agreed w/resident/PA/TICKET CHOPPER ASSEMBLER, reviewed EMR data (avail), discussed with nursing, discussed with case mgmt, amended to note Attending Assessment/Plan: Patient seen and examined. Continues complain of dyspnea on exertion. She remains in atrial fibrillation and continues to develop rapid ventricular response with minimal activity. While conversing with her heart rate was in the 110s-120s. Telemetry monitoring overnight shows an average heart rate in the 90s-120s. Physical examination remains benign. Would recommend increasing her metoprolol dose to achieve better rate control. Currently her Toprol-XL 50 mg is being given at nighttime. Would recommend giving a dose of Toprol-XL 50 mg this morning and then tomorrow starting the patient on Toprol-XL 75 mg orally daily administered in the morning. I would also recommend ambulating the patient today and checking her pulse oximetry with ambulation to determine if she is desaturating with activity. Respiratory symptoms appear to be related to her tachycardia. If we are unable to achieve adequate rate control with oral medications will follow with the cardiology service regarding considering the patient for cardioversion, however we will note that on presentation patient was in sinus rhythm and complained of similar symptoms while he in the hospital even before she went into atrial fibrillation here. It is unclear if there is a component of anxiety however she appears very calm other than when she is talking about her dyspnea on exertion.
--- NOTE | 2017-06-27 09:22 | PN- Cardiology ---
Subjective Subjective: The patient seems to be doing about the same today. She remains mildly dyspneic. Her heart rate control is also suboptimal. Objective Vital Signs and I&Os Vital Signs Date Time Temp Pulse Resp B/P B/P Pulse O2 O2 Flow FiO2 Mean Ox Delivery Rate 06/27 0653 99.6 105 20 122/80 94 06/27 0030 98.2 134 20 120/88 95 06/27 0000 97 Room Air 06/267 99.6 132 21 114/80 95 06/26 2031 134 Intake & Output 06/27 1600 06/27 0800 06/27 0000 06/26 1600 06/26 0800 06/26 0000 Intake Total 200 0 480 Output Total 100 400 Balance 200 -100 480 -400 Intake, Oral 200 0 480 Output, Urine 100 400 Patient 173 lb 169 lb Weight Weight Bed scale Measurement Method Physical Exam: General Appearance: Alert, Oriented X3, Cooperative, No Acute Distress Cardiovascular: Irregular, S1, S2 , mildly tachycardic Lungs: Clear to Auscultation, Normal Air Movement Abdomen: Normal Bowel Sounds, Soft, No Tenderness Neurological: Normal / non focal Extremities: No Edema, Normal Pulses Current Medications: Current Medications Sig/Ramsey Start time Last Medication Dose Route Stop Time Status Admin Acetaminophen 650 MG Q6PRN PRN 06/24 0530 AC 06/24 PO 0706 Apixaban 5 MG BID 06/25 2200 AC 06/27 PO 0818 Aspirin 325 MG DAILY 06/24 1000 AC 06/27 PO 0819 Atorvastatin Calcium 40 MG 1700 06/24 1700 AC 06/26 PO 1720 Metoprolol Succinate 50 MG 2100 06/25 2100 AC 06/26 PO 2031 Omeprazole 20 MG DAILY AC 06/24 0700 AC 06/27 PO 0614 Assessment/Plan Assessment/Plan Assessment: 1. PAF 2. Chest pain syndrome 3. Pericardial effusion 4. Minimally elevated proBNP Recommendations: -Continue current management -As recommended yesterday, consider increasing metoprolol to 75 mg daily, dose to be given in the morning -Continue to monitor respiratory status with improved rate control. At the moment, there is no evidence of overt heart failure and I do not believe there is any indication for further diuresis. Continue telemetry? Yes
[2017-06-27 14:00] VITALS: BP 132/70
[2017-06-27 22:05] VITALS: BP 110/60
[2017-06-28 06:19] VITALS: BP 110/64
--- NOTE | 2017-06-28 07:59 | PN- Housestaff ---
See Addendum Subjective Follow-up For: #Chest pain likely 2/2 Pericarditis #Paroxysmal A-fib #PMH of HTN, HLD Tele-Events Since Last Visit: AFib 90-120s Subjective: No overnight event. Patient was concerned about her heart rate still being high. Still complained of dyspnea on exertion however was able to walk to restroom without assistance. Not on oxygen. Kept NPO overnight for possible cardioversion today. No other specific complaint. Review of Systems Constitutional: Reports: see HPI. Objective Last 24 Hrs of Vital Signs/I&O Vital Signs Date Time Temp Pulse Resp B/P B/P Pulse O2 O2 Flow FiO2 Mean Ox Delivery Rate 06/28 06 99.3 101 20 110/64 94 06/28 0000 96 Room Air 06/27 2205 98.2 84 20 110/60 96 06/27 1400 97.9 108 20 132/70 94 06/27 1258 97 Room Air Room Air 06/27 1258 97 Room Air Room Air 06/27 1223 116 132/82 Intake & Output 06/28 1600 06/28 0800 06/28 0000 Intake Total 100 320 Output Total Balance 100 320 Intake, Oral 100 320 Patient 76.884 kg Weight Physical Exam General Appearance: Alert, Oriented X3, Cooperative, No Acute Distress Cardiovascular: Irregular tachy Lungs: Clear to Auscultation, Normal Air Movement Abdomen: Soft, No Tenderness Neurological: Normal Speech Extremities: No Edema, Normal Pulses Current Medications: Current Medications Sig/Ramsey Start time Last Medication Dose Route Stop Time Status Admin Acetaminophen 650 MG Q6PRN PRN 06/24 0530 AC 06/24 PO 0706 Apixaban 5 MG BID 06/25 2200 AC 06/27 PO 2043 Aspirin 325 MG DAILY 06/24 1000 AC 06/27 PO 0819 Atorvastatin Calcium 40 MG 1700 06/24 1700 AC 06/27 PO 1743 Metoprolol Succinate 75 MG 8AM 06/28 0800 AC PO Metoprolol Succinate 75 MG 2100 06/27 2100 DC PO Metoprolol Succinate 50 MG ONCE ONE 06/27 1130 DC 06/27 PO 06/27 1131 1223 Metoprolol Succinate 50 MG 2100 06/25 2100 DC 06/26 PO 2031 Omeprazole 20 MG DAILY AC 06/24 0700 AC 06/28 PO 0716 Last 24 Hrs of Lab/Zeus Results Last 24 Hrs of Labs/Mics: Laboratory Tests 06/28/17 0708: Sodium Pending, Potassium Pending, Chloride Pending, Carbon Dioxide Pending, Anion Gap Pending, BUN Pending, Creatinine Pending, BUN/Creatinine Ratio Pending , CBC w Diff Pending, WBC Pending, RBC Pending, Hgb Pending, Hct Pending, MCV Pending, MCH Pending, MCHC Pending, RDW Pending, Plt Count Pending, MPV Pending 06/27/17 1744: Anion Gap 13, Estimated GFR > 60, BUN/Creatinine Ratio 18.6 Assessment/Plan Assessment: Ms. 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 Without significant lab/EKG/imaging abnormality to suggest any active cardiac or pulmonary event contributing to patient's SOB and sudden onset chest pain, it is likely that patient was suffering from unstable Angina pending rule out, and less likely, due to paroxysmal a-fib from recent findings. Problem list #Pericardial Effusion #L chest pain #Paroxysmal A-fib #PMH of HTN, HLD Plan - Serial troponin & EKG had been negative - Continue ASA 325mg daily. - Continue Eliquis 5 mg twice daily - Continued metoprolol increased to 75 mg daily AM - May consider cardioversion if her heart rate is still not controlled. Pending cardio confirmation. - UA negative for UTI and patient denied urinary symptoms. CXR clear of pneumonia, and no fever/white count signifying infection. - CRP +ve, ESR 60, No white count on lab, still aligning with picture of pericarditis. - Blood culture and urine culture negative - ECHO showed borderline EF 50-55%. DVT prophylaxis eliquis + ALPS Heart Healthy Diet DNR/DNI Problem List: 1. Paroxysmal A-fib Pain Ratin Pain Location: NA Pain Goal: Remain pain free Pain Plan: see AP Tomorrow's Labs & Rationales: NA
[2017-06-28 08:15] LABS: ABSOLUTE BASOPHIL COUNT 0 /CUMM (0.0-0.2); ABSOLUTE EOSINOPHIL COUNT 0 /CUMM (0.0-0.7); ABSOLUTE GRANULOCYTE CT 4.3 /CUMM (1.4-6.5); ABSOLUTE LYMPH COUNT 1.2 /CUMM (1.2-3.4); ABSOLUTE MONOCYTE COUNT 0.6 /CUMM (0.10-0.60); BASOPHIL % 0.1 % (0.0-2.0); EOSINOPHIL % 0.6 % (0-5); HEMATOCRIT 35.8 % (37-47); MEAN CORPUSCULAR HGB CONC 33.4 G/DL (33.0-37.0); MEAN CORPUSCULAR VOLUME 95.8 FL (81.0-99.0); MEAN PLATELET VOLUME 7.3 FL (7.4-10.4); PLATELET COUNT 485 /CUMM (130-400); RBC DISTRIBUTION WIDTH 12.8 % (11.5-14.5); RED BLOOD CELL CT 3.73 /CUMM (4.20-5.40); WHITE BLOOD CELL COUNT 6.2 /CUMM (4.8-10.8)
--- NOTE | 2017-06-28 11:42 | PN- Cardiology ---
Subjective Subjective: Still c/o ORTEGA. No further CP. Remains in atrial fibrillation with suboptimal control of the ventricular response, despite increase in the dosage of metoprolol. Objective Vital Signs and I&Os Vital Signs Date Time Temp Pulse Resp B/P B/P Pulse O2 O2 Flow FiO2 Mean Ox Delivery Rate 06/28 0823 101 112/60 06/28 0619 99.3 101 20 110/64 94 06/28 0000 96 Room Air 06/27 2205 98.2 84 20 110/60 96 06/27 1400 97.9 108 20 132/70 94 06/27 1258 97 Room Air Room Air 06/27 1258 97 Room Air Room Air 06/27 1223 116 132/82 Intake & Output 06/28 1600 06/28 0800 06/28 0000 06/27 1600 06/27 0800 06/27 0000 Intake Total 100 320 480 200 0 Output Total 100 Balance 100 320 480 200 -100 Intake, Oral 100 320 480 200 0 Output, Urine 100 Patient 170 lb 173 lb Weight Physical Exam: Well developed, well-nourished elderly female in NAD w/ nasal oxygen in place. Vital signs: See above. HEENT: Normocephalic, atraumatic, EOMI, moist mucous membranes. Neck: No JVD, no bruits. Lungs: Few crackles at the right base. Heart: S1, S2 with no murmur, gallop, or rub. PMI fifth ICS at MCL. Abdomen: Soft, nontender, positive bowel sounds. Extremities: No edema. Current Medications: Current Medications Sig/Ramsey Start time Last Medication Dose Route Stop Time Status Admin Acetaminophen 650 MG Q6PRN PRN 06/24 0530 AC 06/24 PO 0706 Apixaban 5 MG BID 06/25 2200 AC 06/28 PO 0822 Aspirin 325 MG DAILY 06/24 1000 AC 06/28 PO 0822 Atorvastatin Calcium 40 MG 1700 06/24 1700 AC 06/27 PO 1743 Diphenhydramine HCl 1 MALDONADO DAILY 06/28 1000 AC 06/28 TOP 1027 Metoprolol Succinate 75 MG 8AM 06/28 0800 AC 06/28 PO 0823 Omeprazole 20 MG DAILY AC 06/24 0700 AC 06/28 PO 0716 Results Last 48 Hrs of Labs/Mics: Laboratory Tests 06/28/17 0708: Anion Gap 12, Estimated GFR > 60, BUN/Creatinine Ratio 18.6, CBC w Diff NO MAN DIFF REQ, RBC 3.73 L, MCV 95.8, MCH 32.0 H, MCHC 33.4, RDW 12.8, MPV 7.3 L, Gran % 70.0, Lymphocytes % 19.8 L, Monocytes % 9.5 H, Eosinophils % 0.6, Basophils % 0.1, Absolute Granulocytes 4.3, Absolute Lymphocytes 1.2, Absolute Monocytes 0.6, Absolute Eosinophils 0, Absolute Basophils 0 06/27/17 1744: Anion Gap 13, Estimated GFR > 60, BUN/Creatinine Ratio 18.6 Assessment/Plan Assessment/Plan [id number]-o-[id number]-f w/ hx HTN, HLD, recently discovered AF on OP 24-hour Holter monitoring who presented w/ c/o CP that resolved & progressive SOB over the past month w/ recurrence of atrial fibrillation with a difficult to control ventricular response rates. Would plan for pharmacologic (dipyridamole) stress test to help exclude an ischemic basis for her shortness of breath on exertion. Would also increase the metoprolol from 75 mg daily to 100 mg daily. Continue telemetry? Yes
[2017-06-28 14:56] VITALS: BP 130/78
[2017-06-28 23:08] VITALS: BP 130/80
[2017-06-29 06:00] VITALS: BP 120/80
--- NOTE | 2017-06-29 07:46 | PN- Housestaff ---
Rubia Barajas 06/29/17 0741: Subjective Follow-up For: #Chest pain likely 2/2 Pericarditis #Paroxysmal A-fib #PMH of HTN, HLD Tele-Events Since Last Visit: Afib 90-110s Subjective: No overnight event. patient was resting under RA on chair waiting for her stress test in the morning. Patient stated she was still SOB but no chest pain or other specific complaint. She was kept NPO overnight. Brought out chronic issues regarding her bilateral great toes being colder than her feet and only got warmer when she starts walking around./ Review of Systems Constitutional: Reports: see HPI. Objective Last 24 Hrs of Vital Signs/I&O Vital Signs Date Time Temp Pulse Resp B/P B/P Pulse O2 O2 Flow FiO2 Mean Ox Delivery Rate 06/29 0600 98.7 88 20 120/80 95 Room Air 06/28 2308 98.5 101 16 130/80 96 Room Air 06/28 1456 98.1 86 20 130/78 94 Room Air 06/28 0823 101 112/60 Intake & Output 06/29 0800 06/29 0000 06/28 1600 Intake Total 10 420 Output Total 450 Balance 10 -30 Intake, IV 10 Intake, Oral 0 420 Number 1 Bowel Movements Output, Urine 450 Patient 76.204 kg Weight Physical Exam General Appearance: Alert, Oriented X3, Cooperative, No Acute Distress Cardiovascular: Regular Rate Lungs: Clear to Auscultation, Normal Air Movement, appeared to have some dyspnea Abdomen: Normal Bowel Sounds, Soft, No Tenderness Neurological: Normal Speech Extremities: No Edema, Normal Pulses, BL big toes mildly decreased temp. Current Medications: Current Medications Sig/Ramsey Start time Last Medication Dose Route Stop Time Status Admin Acetaminophen 650 MG Q6PRN PRN 06/24 0530 AC 06/24 PO 0706 Apixaban 5 MG BID 06/25 2200 AC 06/28 PO 2231 Aspirin 325 MG DAILY 06/24 1000 AC 06/28 PO 0822 Atorvastatin Calcium 40 MG 1700 06/24 1700 AC 06/28 PO 1755 Diphenhydramine HCl 1 MALDONADO DAILY 06/28 1000 AC 06/28 TOP 1027 Metoprolol Succinate 100 MG 8AM 06/29 0800 AC PO Metoprolol Succinate 75 MG 8AM 06/28 0800 DC 06/28 PO 0823 Omeprazole 20 MG DAILY AC 06/24 0700 AC 06/29 PO 0646 Last 24 Hrs of Lab/Zeus Results Last 24 Hrs of Labs/Mics: Laboratory Tests 06/29/17 0657: CBC w Diff Pending, WBC Pending, RBC Pending, Hgb Pending, Hct Pending, MCV Pending, MCH Pending, MCHC Pending, RDW Pending, Plt Count Pending, MPV Pending Assessment/Plan Assessment: Ms. 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 Without significant lab/EKG/imaging abnormality to suggest any active cardiac or pulmonary event contributing to patient's SOB and sudden onset chest pain, it is likely that patient was suffering from unstable Angina pending rule out, and less likely, due to paroxysmal a-fib from recent findings. Problem list #Paroxysmal A-fib w/ dyspnea #PMH of HTN, HLD Plan - Serial troponin & EKG had been negative - Continue ASA 325mg daily. - Continue Eliquis 5 mg twice daily - Continued metoprolol increased to 100 mg daily AM - Pending chemical stress test this morning to rule out any ischemia. - May consider cardioversion if her heart rate is still not controlled. Pending cardio confirmation. - UA negative for UTI and patient denied urinary symptoms. CXR clear of pneumonia, and no fever/white count signifying infection. - CRP +ve, ESR 60, No white count on lab, still aligning with picture of pericarditis. - Blood culture and urine culture negative - ECHO showed borderline EF 50-55%. DVT prophylaxis eliquis + ALPS Heart Healthy Diet DNR/DNI Problem List: 1. Paroxysmal A-fib Pain Ratin Pain Location: NA Pain Goal: Remain pain free Pain Plan: see AP Tomorrow's Labs & Rationales: PAUL Klein MD,Imtiaz 06/29/17 1109: Attending MD Review Statement Attending Statement Attending MD Statement: examined this patient, discuss w/resident/PA/DESKTOP ADMINISTRATOR, agreed w/resident/PA/DESKTOP ADMINISTRATOR, reviewed EMR data (avail), discussed with nursing, discussed with case mgmt, amended to note Attending Assessment/Plan: Patient seen and examined. Resting comfortably not in any acute distress. No issues overnight reported by nursing staff. She remains in atrial fibrillation with rapid ventricular response even at rest. She continues to complain of dyspnea with exertion. This is despite increasing the dose of her metoprolol to 75 mg yesterday. She is scheduled to undergo a nuclear stress test today to rule out underlying ischemia as a cause of her dyspnea on exertion. Her metoprolol dose has also been increased 100 mg daily. If no ischemic etiology is noted on her nuclear stress test today and she remains tachycardic on the increased dose of metoprolol will discuss with the cardiology service again regarding transitioning patient to a different negative chronotropic agent.
[2017-06-29 08:25] LABS: ABSOLUTE BASOPHIL COUNT 0 /CUMM (0.0-0.2); ABSOLUTE EOSINOPHIL COUNT 0 /CUMM (0.0-0.7); ABSOLUTE GRANULOCYTE CT 4.6 /CUMM (1.4-6.5); ABSOLUTE LYMPH COUNT 1.2 /CUMM (1.2-3.4); ABSOLUTE MONOCYTE COUNT 0.6 /CUMM (0.10-0.60); BASOPHIL % 0.3 % (0.0-2.0); EOSINOPHIL % 0.6 % (0-5); GRANULOCYTE % 71.9 % (42.2-75.2); HEMATOCRIT 36.9 % (37-47); MEAN CORPUSCULAR HGB 31.7 PG (27.0-31.0); MEAN CORPUSCULAR HGB CONC 33.4 G/DL (33.0-37.0); MEAN PLATELET VOLUME 7.3 FL (7.4-10.4); PLATELET COUNT 561 /CUMM (130-400); RBC DISTRIBUTION WIDTH 13.1 % (11.5-14.5); RED BLOOD CELL CT 3.89 /CUMM (4.20-5.40); WHITE BLOOD CELL COUNT 6.4 /CUMM (4.8-10.8)
[2017-06-29 15:00] VITALS: BP 110/70
--- NOTE | 2017-06-29 15:09 | IV DIPYRIDAMOLE NUCLEAR STRESS ---
Clinical Diagnosis: Hypertension, HLD, new onset atrial fibrillation Dental Prosthetist: Dinesh Richardson IV DIPYRIDAMOLE INFUSED: 45 mg IV AMINOPHYLLINE INFUSED: 125 mg PATIENT WEIGHT: 169 lbs INTERPRETATION: The patient's baseline EKG showed atrial fibrillation with a high heart rate at 144 BPM. Baseline B/P 126/84. The patient received 45 mg of dipyridamole infused intravenously over a 4 minute period. TC99M Myoview was injected after dipyridamole infusion. The patient complained of nausea and SOB. There were no EKG changes seen following pharmacologic infusion. Arrhythmias: None IMPRESSION: The test was supervised by the interpreting Director Pharmacy Services, who was in attendance during the entire test. No EKG evidence of stress induced myocardial ischemia. See separately dictated Nuclear Report.
--- NOTE | 2017-06-29 17:10 | NUCLEAR MEDICINE REPORT ---
PERSANTINE STRESS AND RESTING SPECT MYOCARDIAL PERFUSION IMAGING STUDY WITH GATED SPECT IMAGES: CLINICAL INDICATION: Hypertension/HLD/atrial fibrillation. PROCEDURE: Regional myocardial perfusion was assessed using a 1 day protocol. Stress images were obtained on 06/29/2017 following the intravenous administration of 19.3 mCi Tc 99m Myoview. Stress consisted of 45 mg Persantine given intravenously. Following the sestamibi injection, 125 mg aminophylline was given intravenously. Rest images were obtained 06/29/2017 following the intravenous administration of 28.3 mCi Technetium 99m Myoview. Single photon emission tomographic (SPECT) images were obtained. SPECT images were acquired in a 64 x 64 matrix of 64 projections over 180 degrees. These were reconstructed into standard short axis, horizontal and vertical long axis cardiac projections. FINDINGS: The post stress images demonstrate the left ventricular chamber to be normal in size. There is homogeneous distribution of activity in the left ventricular myocardium with no regions of abnormally decreased activity noted. The resting images also demonstrate homogeneous distribution of activity in the left ventricular myocardium, and are not significantly changed from the post stress images. The images were obtained using a gated SPECT technique, which permits visualization of wall motion and calculation of the left ventricular ejection fraction. No left ventricular wall motion abnormalities are noted on either the stress or resting study. The calculated left ventricular ejection fraction is 78% on the stress study. No previous study is available for comparison. IMPRESSION: Normal Persantine stress and resting myocardial perfusion study with normal left ventricular wall motion and ejection fraction.
--- NOTE | 2017-06-29 17:28 | PN- Cardiology ---
Subjective Subjective: Still feels short of breath on exertion. Had nuclear stress test earlier. Telemetry now reveals sinus rhythm with multiple APCs. Objective Vital Signs and I&Os Vital Signs Date Time Temp Pulse Resp B/P B/P Pulse O2 O2 Flow FiO2 Mean Ox Delivery Rate 06/29 1500 98.3 82 18 110/70 95 Room Air 06/29 1331 140 11/6 06/29 0600 98.7 88 20 120/80 95 Room Air 06/28 2308 98.5 101 16 130/80 96 Room Air Intake & Output 06/29 1600 06/29 0800 06/29 0000 06/28 1600 06/28 0800 06/28 0000 Intake Total 400 10 420 100 320 Output Total 450 Balance 400 10 -30 100 320 Intake, IV 10 Intake, Oral 400 0 420 100 320 Number 1 Bowel Movements Output, Urine 450 Patient 168 lb 170 lb Weight Physical Exam: Well-developed, well-nourished elderly female in no acute distress. Vital signs: See above. HEENT: Normocephalic, atraumatic, EOMI, moist mucous membranes. Neck: No JVD, no bruits. Lungs: Few crackles right base. Otherwise clear. Heart: S1, S2 with no murmur, gallop, or rub. Extremities: No edema. Current Medications: Current Medications Sig/Ramsey Start time Last Medication Dose Route Stop Time Status Admin Acetaminophen 650 MG Q6PRN PRN 06/24 0530 AC 06/24 PO 0706 Apixaban 5 MG BID 06/25 2200 AC 06/29 PO 1331 Aspirin 325 MG DAILY 06/24 1000 AC 06/29 PO 1331 Atorvastatin Calcium 40 MG 1700 06/24 1700 AC 06/28 PO 1755 Diphenhydramine HCl 1 MALDONADO DAILY 06/28 1000 AC 06/29 TOP 1121 Dipyridamole 45 MG ONE ONE 06/29 0815 CAN Dextrose/Water 31 ML IV 06/29 0816 Dipyridamole 45 MG ONE ONE 06/29 0815 DC Dextrose/Water 31 ML IV 06/29 0816 Metoprolol Succinate 100 MG 8AM 06/29 0800 AC 06/29 PO 1331 Omeprazole 20 MG DAILY AC 06/24 0700 AC 06/29 PO 0646 Patient Medication 1 ED ONE ONE 06/29 1700 DC Teaching ED 06/29 1701 Results Last 48 Hrs of Labs/Mics: Laboratory Tests 06/29/17 0657: CBC w Diff NO MAN DIFF REQ, RBC 3.89 L, MCV 95.0, MCH 31.7 H, MCHC 33.4, RDW 13.1, MPV 7.3 L, Gran % 71.9, Lymphocytes % 18.5 L, Monocytes % 8.7, Eosinophils % 0.6, Basophils % 0.3, Absolute Granulocytes 4.6, Absolute Lymphocytes 1.2, Absolute Monocytes 0.6, Absolute Eosinophils 0, Absolute Basophils 0 06/28/17 0708: Anion Gap 12, Estimated GFR > 60, BUN/Creatinine Ratio 18.6, CBC w Diff NO MAN DIFF REQ, RBC 3.73 L, MCV 95.8, MCH 32.0 H, MCHC 33.4, RDW 12.8, MPV 7.3 L, Gran % 70.0, Lymphocytes % 19.8 L, Monocytes % 9.5 H, Eosinophils % 0.6, Basophils % 0.1, Absolute Granulocytes 4.3, Absolute Lymphocytes 1.2, Absolute Monocytes 0.6, Absolute Eosinophils 0, Absolute Basophils 0 06/27/17 1744: Anion Gap 13, Estimated GFR > 60, BUN/Creatinine Ratio 18.6 Recent Imaging Studies: Pharmacologic (dipyridamole) stress test 06/29/2017: Normal Persantine stress and resting myocardial perfusion study with normal left ventricular wall motion and ejection fraction. Assessment/Plan Assessment/Plan 81-y-o-w-f w/ hx HTN, HLD, recently discovered AF on OP 24-hour Holter monitoring who presented w/ c/o CP that resolved & progressive SOB over the past month w/ recurrence of atrial fibrillation with a difficult to control ventricular response rates. Fortunately, she is back in sinus rhythm and her nuclear stress test revealed no evidence of ischemia. Hopefully, sinus rhythm will translate into this shortness of breath on exertion. Continue therapy set risk reduction. Continue telemetry? Yes
[2017-06-29 22:34] VITALS: BP 121/69
[2017-06-30 07:18] VITALS: BP 116/64
[2017-06-30] MEDS ORDERED: TOPROL XL100 M1 PO ×2 (07:24→10:42)
[2017-06-30] MEDS ORDERED: ELIQUIS5 M1 PO ×2 (07:26→10:42)
--- NOTE | 2017-06-30 07:35 | PN- Housestaff ---
KarlRubia Christian Ramirez 06/30/17 0734: Subjective Follow-up For: #Pericardial Effusion, resolved #Paroxysmal A-fib, resolved #PMH of HTN, HLD Tele-Events Since Last Visit: A-fib reverted to NSR spontaneously overnight Subjective: No overnight event. Patient reverted back to NSR and had no more SOB. Would like to go home before snow storm. Review of Systems Constitutional: Reports: see HPI. Objective Last 24 Hrs of Vital Signs/I&O Vital Signs Date Time Temp Pulse Resp B/P B/P Pulse O2 O2 Flow FiO2 Mean Ox Delivery Rate 06/30 0901 80 120/70 06/30 0718 98.7 83 18 116/64 95 Room Air 06/29 2234 99.4 82 18 121/69 96 Room Air 06/29 1500 98.3 82 18 110/70 95 Room Air 06/29 1331 140 11/6 Intake & Output 06/30 1600 06/30 0800 06/30 0000 Intake Total 200 200 Output Total Balance 200 200 Intake, Oral 200 200 Patient 76.26 kg Weight Physical Exam General Appearance: Alert, Oriented X3, Cooperative, No Acute Distress Cardiovascular: Regular Rate Lungs: Clear to Auscultation, Normal Air Movement Abdomen: Normal Bowel Sounds, Soft, No Tenderness Neurological: Normal Speech Extremities: No Edema, Normal Pulses Current Medications: Current Medications Sig/Ramsey Start time Last Medication Dose Route Stop Time Status Admin Acetaminophen 650 MG Q6PRN PRN 06/24 0530 AC 06/24 PO 0706 Apixaban 5 MG BID 06/25 2200 AC 06/30 PO 0900 Aspirin 325 MG DAILY 06/24 1000 AC 06/30 PO 0900 Atorvastatin Calcium 40 MG 1700 06/24 1700 AC 06/29 PO 1717 Diphenhydramine HCl 1 MALDONADO DAILY 06/28 1000 AC 06/29 TOP 1121 Metoprolol Succinate 100 MG 8AM 06/29 0800 AC 06/30 PO 0901 Omeprazole 20 MG DAILY AC 06/24 0700 AC 06/30 PO 0556 Patient Medication 1 ED ONE ONE 06/29 1700 DC 06/29 Teaching ED 06/29 1701 1720 Assessment/Plan Assessment: Ms. 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 Without significant lab/EKG/imaging abnormality to suggest any active cardiac or pulmonary event contributing to patient's SOB and sudden onset chest pain, it is likely that patient was suffering from unstable Angina pending rule out, and less likely, due to paroxysmal a-fib from recent findings. Problem list #Paroxysmal A-fib w/ dyspnea #PMH of HTN, HLD Plan - Serial troponin & EKG had been negative - Continue ASA 325mg daily. Will not discharge patient on this med as pericardial effusion was resolved without more episodes of chest pain. - Continue Eliquis 5 mg twice daily, discharge pt on this med and will follow up w/ Dr. Fitzpatrick. Pt's [id number] rated 3 (Female + >75yo). - Continued metoprolol increased to 100 mg daily AM, will discharge on this dose and f/u with cardiology. - Stress test negative for ischemia. - UA negative for UTI and patient denied urinary symptoms. CXR clear of pneumonia, and no fever/white count signifying infection. - CRP +ve, ESR 60, No white count on lab, still aligning with picture of pericarditis. - Blood culture and urine culture negative - ECHO showed borderline EF 50-55%. DVT prophylaxis eliquis + ALPS Heart Healthy Diet DNR/DNI Problem List: 1. Paroxysmal A-fib Pain Ratin Pain Location: NA Pain Goal: Remain pain free Pain Plan: see AP Tomorrow's Labs & Rationales: PAUL Klein MD,Imtiaz 06/30/17 1116: Attending MD Review Statement Attending Statement Attending MD Statement: examined this patient, discuss w/resident/PA/WRAPPER LEAF INSPECTOR, agreed w/resident/PA/WRAPPER LEAF INSPECTOR, reviewed EMR data (avail), discussed with nursing, discussed with case mgmt, amended to note Attending Assessment/Plan: Patient seen and examined. Resting comfortably and not in any acute distress. No issues overnight. Apparently she converted back to normal sinus rhythm overnight and remains in normal sinus rhythm. She denies any chest pain. Denies palpitations. She continues to report dyspnea on exertion but according to the patient she reports feeling somewhat better and less dyspneic with exertion. She is currently willing to go home. All through the weekend she was very hesitant about going home due to ongoing dyspnea. She reports that she is more comfortable going home today. Nuclear stress test was done yesterday and showed no evidence of ischemic disease. She is medically stable to be discharged today. She will continue metoprolol dose has been increased to 100 mg daily. She will also continue on anticoagulation therapy as an outpatient. She has been advised to follow-up with her pipe organ builder for Further monitoring of her paroxysmal atrial fibrillation. It appears that her dyspnea on exertion is related to her A. fib with rapid ventricular response.
[2017-06-30 09:01] VITALS: BP 120/70
== END 2017-06-30 11:25 | disposition home health service (06) | DRG 316 ==
LOC: ERH 08:45 → 1NO 14:42 → ERHI 14:42 → ENRESERV 15:13 → ENTRNSPT 15:53 → EDTRNSPTSTS 16:10 → EDTRNSPT 16:10 → CMPTRNSPT 16:25 → 1NO 16:34 → ENTRNSPT 06-24 12:37 → EDTRNSPTSTS 06-24 12:47 → CMPTRNSPT 06-24 12:58 → 1NO 06-30 10:26 → ENPENDDIS 06-30 10:41 → 1NO 06-30 11:25
PROVIDERS: Internal Medicine; Physician Assistant; Student in an Organized Health Care Education/Training Program
DX: I31.3 Pericardial effusion (noninflammatory) (principal); I48.0 Paroxysmal atrial fibrillation; I31.9 Disease of pericardium, unspecified; I10 Essential (primary) hypertension; K21.9 Gastro-esophageal reflux disease without esophagitis; R07.1 Chest pain on breathing; E78.5 Hyperlipidemia, unspecified; Z88.8 Allergy status to other drugs, medicaments and biological substances; Z87.891 Personal history of nicotine dependence; Z66 Do not resuscitate; K44.9 Diaphragmatic hernia without obstruction or gangrene; K64.9 Unspecified hemorrhoids; M19.91 Primary osteoarthritis, unspecified site
CPT/HCPCS: 1NP; 36415; 36592; 71045; 71046; 78452; 81001; 82436; 84481; 87040; 87086; 87804; 87804-59; 93005; 93010; 93016; 93017; 93306; A9502; J1245; J1644; J1650; J1940; J7508